=== PATIENT | male | born 1965 | race Caucasian/White ===

== ENCOUNTER → 2021-10-05 13:20 | Outpatient (BNVA) | payer MEDICAID, SELFPAY | PROVIDERS: Visit Provider Specialist | DX: M54.17 Radiculopathy, lumbosacral region (principal); G43.711 Chronic migraine without aura, intractable, with status migrainosus; R25.1 Tremor, unspecified; F32.A Depression, unspecified | CPT/HCPCS: 99204 ==

== ENCOUNTER → 2022-01-05 14:11 | Outpatient (BNVA) | payer MEDICAID, SELFPAY | PROVIDERS: Visit Provider Specialist | DX: G43.711 Chronic migraine without aura, intractable, with status migrainosus (principal); I16.0 Hypertensive urgency; M54.17 Radiculopathy, lumbosacral region; F32.A Depression, unspecified; R25.1 Tremor, unspecified | CPT/HCPCS: 99214; 99215 ==

== ENCOUNTER → 2022-06-01 08:50 | Outpatient (BNVA) | payer MEDICAID, SELFPAY | PROVIDERS: Visit Provider Specialist | DX: G43.711 Chronic migraine without aura, intractable, with status migrainosus (principal); M54.81 Occipital neuralgia | CPT/HCPCS: 64405; 64450; 99213; 99214; J1030 ==

== ENCOUNTER → 2022-06-29 10:28 | Outpatient (BNVA) | payer MEDICAID, SELFPAY | PROVIDERS: Visit Provider Specialist | DX: G43.711 Chronic migraine without aura, intractable, with status migrainosus (principal); M54.81 Occipital neuralgia | CPT/HCPCS: 64405; 64450; 99214; J1030; J3490 ==

== ENCOUNTER → 2022-09-27 09:32 | Outpatient (BNVA) | payer MEDICAID, SELFPAY | PROVIDERS: Visit Provider Specialist | DX: M54.81 Occipital neuralgia (principal); G43.711 Chronic migraine without aura, intractable, with status migrainosus; F32.A Depression, unspecified; Z79.891 Long term (current) use of opiate analgesic; R11.0 Nausea | CPT/HCPCS: 64405; 64450; 99214 ==

== ENCOUNTER → 2023-04-04 09:04 | Outpatient (BNVA) | payer MEDICARE, MEDICAID, SELFPAY | PROVIDERS: PCP Family Medicine; Visit Provider Specialist | DX: G43.711 Chronic migraine without aura, intractable, with status migrainosus; F32.A Depression, unspecified; M54.12 Radiculopathy, cervical region | CPT/HCPCS: 99214 ==

== ENCOUNTER 2023-04-14 07:11 | Outpatient (CLI) | payer MEDICAID, SELFPAY ==
--- NOTE | 2023-04-14 08:00 | MR_ITS ---
WS: [id number] MRI CERVICAL SPINE NONCONTRAST TECHNIQUE: Sagittal T1, T2 and STIR imaging. Axial T2, gradient, and fiesta imaging. CLINICAL INFORMATION: G43.711 - Chronic migraine without aura, intractable, wit... COMPARISON: None. FINDINGS: Mild cervical curve. Mild spondylitic changes. Cord signal is normal. C2-C3: Normal. C3-C4: Slight retrolisthesis C3 on C4. Mild disc osteophyte complex with endplate ridging. Slight eff acement of the RIGHT ventral thecal sac. Moderate RIGHT and mild LEFT foraminal narrowing. Moderate f acet arthropathy. C4-C5: Disc osteophyte complex with endplate ridging. Moderate facet arthropathy. Moderate to severe LEFT greater than RIGHT bony foraminal narrowing. Moderate facet arthropathy. Mild central canal sten osis. Slight indentation LEFT ventral cervical cord. C5-C6: Disc osteophyte complex with mild central canal stenosis and slight contact of the cervical co rd. Moderate to severe bilateral bony foraminal narrowing. Moderate facet arthropathy. C6-C7: Shallow RIGHT pericentral protrusion. Slight indentation RIGHT ventral cervical cord with mild central canal stenosis. Severe LEFT and mild RIGHT bony foraminal narrowing. C7-T1: Disc osteophyte complex with endplate ridging. Slight indentation LEFT ventral cervical cord. LEFT subarticular disc extrusion with slight inferior migration of disc material. 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 Severe LEFT and moderate to severe RIGHT bony foraminal narrowing. Mild central canal stenosis. Visualized brain stem structures: Normal. Prevertebral soft tissues: Normal. MR/MR cervical spin wo con* [id number] IMPRESSION: 1. LEFT pericentral subarticular disc protrusion with additional disc extrusio n extending inferiorly to the upper T1 vertebral body. This is best visualized on the sagittal imaging. This extends into the LEFT subarticular recess with se venita LEFT foraminal narrowing. Mild central canal stenosis at this level. 2. Disc osteophyte protrusions with mild central canal stenosis C5-C6 and C6-C 7 described above. Indentation RIGHT ventral cervical cord at C6-C7. 3. Mild central canal stenosis C4-C5 with slight indentation LEFT ventral cerv ical cord. 4. Multilevel moderate to severe bony foraminal narrowing worse at bilateral C 4-C5 worse in the LEFT, bilateral C5-C6, LEFT C6-C7, and LEFT C7-T1.
== END 2023-04-14 07:12 | disposition home or self-care (01) ==
PROVIDERS: PCP Family Medicine; Visit Provider Specialist
DX: G43.711 Chronic migraine without aura, intractable, with status migrainosus (principal); M54.81 Occipital neuralgia; M51.24 Other intervertebral disc displacement, thoracic region; M48.04 Spinal stenosis, thoracic region; M25.78 Osteophyte, vertebrae; M48.02 Spinal stenosis, cervical region
CPT/HCPCS: 72141

== ENCOUNTER → 2023-05-18 10:36 | Outpatient (BNVA) | payer MEDICARE, MEDICAID, SELFPAY | PROVIDERS: PCP Family Medicine; Referring Provider Specialist; Visit Provider Orthopaedic Surgery | DX: Z01.818 Encounter for other preprocedural examination (principal); C61 Malignant neoplasm of prostate; M54.12 Radiculopathy, cervical region | CPT/HCPCS: 72050; 99204 ==

== ENCOUNTER 2023-05-22 12:53 | Outpatient (CLI) | payer MEDICARE, MEDICAID, SELFPAY ==
[2023-05-22 13:27] LABS: Basophils % 0.6 %; Eosinophils # 0.2 10^3/uL (0.0-0.8); Eosinophils % 2.8 %; Hematocrit 43.8 % (37-53); Lymphocytes # 2.3 10^3/uL (0.8-4.8); Lymphocytes % 34.2 %; Mean Corpuscular HGB Conc 34.7 g/dL (30-55); Mean Corpuscular Hemoglobin 30.2 pg (27-33); Mean Corpuscular Volume 86.9 fl (82-101); Mean Platelet Volume 11.2 fL (7.4-10.4); Monocytes # 0.4 10^3/uL (0.2-0.9); Monocytes % 5.6 %; Neutrophils % 56.4 %; Nucleated Red Blood Cells % 0 %; Platelet Count 148 10^3/cmm (157-399); Red Blood Count 5.04 10^6/uL (3.85-5.65); Red Cell Distribution Width 13.5 % (12.1-15.1); White Blood Count 6.75 10^3/uL (3.29-11.43)
[2023-05-22 13:37] LABS: Urine Appearance Clear (CLEAR); Urine Color Yellow (Yellow)
[2023-05-22 13:38] LABS: Add Urine Culture? No; Add Urine Microscopic? YES; Bacteria Urine TRACE /hpf; Bilirubin Urine Neg (Negative); Blood Urine Trace (Negative); Glucose Urine UA 4+ (Normal); Ketones Urine Negative (Negative); Leukocyte Esterase Urine Negative (Negative); Nitrate Urine Negative (Negative); Protein Urine Trace (Negative); RBC Urine RARE /hpf (0-2); Specific Gravity, Urine 1.015 (1.005-1.030); Urobilinogen Urine Norm (Negative); pH Urine 6 (5-7)
[2023-05-22 13:56] LABS: Estmated Average Glucose 192; Hemoglobin A1C 8.3 % (4.0-6.0)
[2023-05-22 14:07] LABS: Alanine Aminotransferase 116 U/L (0-41); Albumin Level 4.7 g/dL (3.5-5.2); Alkaline Phosphatase 126 U/L (40-130); Anion Gap 13.7 (5-19); Aspartate Amino Transferase 104 U/L (0-40); Blood Urea Nitrogen 9 mg/dL (6-20); Calcium 9.2 mg/dL (8.5-10.5); Carbon Dioxide 31 mmol/L (22-29); Chloride 100 mmol/L (98-107); Globulin 3.1 g/dL (1.3-4.6); Glomerular Filtration Rate 86.4 mL/min (90-130); Glucose 242 mg/dL (65-115); Osmolality Calculated 299 mOsm/kg (285-295); Potassium 3.7 mmol/L (3.5-5.1); Sodium 141 mmol/L (136-145); Total Bilirubin 0.6 mg/dL (0.15-1.2); Total Protein 7.8 g/dL (6.6-8.7)
== END 2023-05-22 12:54 | disposition home or self-care (01) ==
PROVIDERS: PCP Family Medicine; Visit Provider Orthopaedic Surgery
DX: Z01.818 Encounter for other preprocedural examination (principal); E11.9 Type 2 diabetes mellitus without complications
CPT/HCPCS: 36415; 80053; 81001; 83036; 85025

== ENCOUNTER → 2023-06-05 10:20 | Outpatient (BNVA) | payer MEDICARE, MEDICAID, SELFPAY | PROVIDERS: PCP Family Medicine; Visit Provider Family Medicine | DX: Z01.818 Encounter for other preprocedural examination (principal); I16.0 Hypertensive urgency; G43.711 Chronic migraine without aura, intractable, with status migrainosus | CPT/HCPCS: 81000; 83036 ==

== ENCOUNTER → 2023-07-18 10:06 | Outpatient (BNVA) | payer MEDICARE, MEDICAID, SELFPAY | PROVIDERS: PCP Family Medicine; Visit Provider Family Medicine | DX: M50.00 Cervical disc disorder with myelopathy, unspecified cervical region (principal) | CPT/HCPCS: 83036 ==

== ENCOUNTER → 2023-07-25 12:49 | Outpatient (BNVA) | payer MEDICARE, MEDICAID, SELFPAY | PROVIDERS: PCP Family Medicine; Visit Provider Orthopaedic Surgery | DX: M50.00 Cervical disc disorder with myelopathy, unspecified cervical region; Z01.818 Encounter for other preprocedural examination | CPT/HCPCS: 36415; 80053; 81003; 85025; 99214 ==

== ENCOUNTER → 2023-08-10 09:43 | Outpatient (BNVA) | payer MEDICARE, MEDICAID, SELFPAY | PROVIDERS: PCP Family Medicine; Visit Provider Family Medicine | DX: Z01.818 Encounter for other preprocedural examination (principal) | CPT/HCPCS: 80053; 81003 ==

== ENCOUNTER 2023-08-16 13:29 | Inpatient (IN) | payer MEDICARE, MEDICAID, SELFPAY ==
[2023-08-16] VITALS (29 sets, daily range): BP systolic 102–207; BP diastolic 71–142; PULSE 62–89; RESP 7–18; TEMP 36.3–36.8; O2SAT 88–99
--- NOTE | 2023-08-16 | XR_ITS ---
WS: [id number] Cervical spine, C ARM fluoroscopy views, 08/16/2023 Clinical Data: or pic, C4-T1 ACDF Comparison: None. Findings: Dr. Espino performed an anterior cervical disc fusion. Impression: Anterior cervical disc fusion.
[2023-08-16] MEDS: sodium chloride 0.9% 1,000 ML 30 ML IV (07:20)
[2023-08-16] MEDS: methadone 10 mg Tablet PO (07:25)
[2023-08-16] MEDS: HYDROmorphone 1 mg/mL INJ 1 mL 0.5 MG IVP (07:50)
--- NOTE | 2023-08-16 07:52 | P.ANESASSM_ITS ---
Pre-Anesthetic Assessment Height/Weight: Height 1.65 m Weight 71.214 kg Temp Pulse Resp BP Pulse Ox O2 Del Method 97.3 F L 87 17 155/123 99 Room Air 08/16/23 07:11 08/16/23 07:11 08/16/23 07:11 08/16/23 07:11 08/16/23 07:11 08/16/23 07:11 Preop Diagnosis: Cervical Spondylosis w/myelopathy Operation Date: 08/16/23 08:40 Proposed Procedures p C4/5 C5/6 C6/7 Anterior Cervical Discectomy & Fusion ACDF(Not Applicable) - Ed Espino DO Familial anesthetic complications: none Was Beta Maikel taken within 24 hours: Yes Was Clonidine taken within 24 hours: Yes Last intake: Intake Last Liquid Date 08/15/23 Last Liquid Time 00:00 Last Solid Date 08/15/23 Last Solid Time 21:00 Social No alcohol and No tobacco Exam alert, oriented x 3, clear to auscultation bilaterally and regular rate & rhythm Airway Submandibular: within normal limits Cervical ROM: within normal limits Mallampati: Class II Dentition: caps Comments: Comments: Good cervical ROM, minimal pain with extension CV/HEM Hypertension GI Gastroesophageal Reflux Disease Metabolic Diabetes Mellitus and Hyperlipidemia [facility] [place] Osteoarthritis/DJD Neuropsych Anxiety, Dementia and Headache Anesthetic Plan ASA status: 3 Anesthesia: General Medications/Allergies Home Medications Medication Instructions Recorded Confirmed Last Taken Type diphenhydramine HCl 25 mg tablet 25 mg PO TID PRN Itching 10/05/21 08/16/23 08/15/23 History (Allergy (diphenhydramine)) sumatriptan succinate 100 mg See Rx Instructions PO .COMPLEX #8 01/05/22 08/16/23 Unknown Rx tablet (Imitrex) tabs tizanidine 4 mg capsule 4 mg PO BID PRN muscle spams 01/05/22 08/16/23 08/15/23 History isosorbide mononitrate 30 mg 30 mg PO DAILY 06/01/22 08/14/23 07/15/23 History tablet,extended release 24 hr pantoprazole 20 mg tablet,delayed 20 mg PO DAILY 06/01/22 08/16/23 08/15/23 History release topiramate 100 mg tablet (Topamax) 100 mg PO ONCE 90 days #90 tabs 06/01/22 08/14/23 07/15/23 Rx clonidine HCl 0.1 mg tablet 0.1 mg PO BID 09/27/22 08/16/23 Unknown History Bone growth stimulator #1 ea 05/22/23 07/25/23 Unknown Rx bisoprolol fumarate 5 mg tablet 2.5 mg PO DAILY 06/05/23 08/14/23 Unknown History clopidogrel 75 mg tablet 75 mg PO DAILY 06/05/23 08/14/23 07/15/23 History dapagliflozin propanediol 5 mg 5 mg PO DAILY 06/05/23 08/14/23 08/11/23 History tablet (Farxiga) fesoterodine 8 mg tablet,extended 8 mg PO DAILY 06/05/23 08/14/23 07/15/23 History release 24 hr (Toviaz) galcanezumab-gnlm 120 mg/mL See Rx Instructions .Route 06/05/23 08/16/23 Unknown Rx subcutaneous pen injector .COMPLEX #2 mL (Emgality Pen) labetalol 100 mg tablet 100 mg PO BID 06/05/23 08/16/23 08/15/23 History losartan 50 mg tablet 100 mg PO DAILY 06/05/23 08/14/23 07/15/23 History metoclopramide HCl 5 mg tablet 10 mg PO BID 06/05/23 08/14/23 07/15/23 History ondansetron 4 mg disintegrating 4 mg PO Q8H PRN nausea and vomiting 06/05/23 08/16/23 Unknown History tablet promethazine 25 mg tablet 25 mg PO TID PRN nausea 06/05/23 08/16/23 Unknown History spironolactone 50 mg tablet 50 mg PO BID 06/05/23 08/14/23 07/15/23 History venlafaxine 75 mg capsule,extended 225 mg PO DAILY 06/05/23 08/16/23 08/15/23 History release 24 hr Bone Growth stimulator #1 ea 08/07/23 Unknown Rx cilostazol 50 mg tablet 50 mg PO BID 08/10/23 08/14/23 07/15/23 History metformin 500 mg tablet 500 mg PO DAILY 08/10/23 08/14/23 08/11/23 History simvastatin 20 mg tablet 20 mg PO DAILY 08/10/23 08/14/23 08/14/23 History diltiazem HCl 120 mg 120 mg PO BID 08/14/23 08/16/23 Unknown History capsule,extended release 24 hr, controlled (DILT-XR) Allergies Allergy/AdvReac Type Severity Reaction Status Date / Time aspirin Allergy Severe ALGY-Anaphy Verified 08/10/23 09:28 laxis Current Medications Generic Name Dose Route Start Last Admin Trade Name Freq PRN Reason Stop Dose Admin Sodium Chloride 1,000 mls @ 30 mls/hr 08/16/23 07:00 08/16/23 07:20 Sodium Chloride 0.9% IV 08/17/23 06:59 30 mls/hr .Q24H KAILEY Administration PFSH Anesthesia Social History Smoking and tobacco/nicotine status: former use of tobacco/nicotine Alcohol intake: current Alcohol intake frequency: holidays/special occasions only Data Anesthesia Cardiac Studies: No Data to Display
--- NOTE | 2023-08-16 08:40 | W.PM.OPSUD ---
Surgery/Procedure H&P Update DATE OF PROCEDURE: August 16, 2023 DATE H&P PERFORMED: 08/10/23 H&P UPDATE INFORMATION: I have reviewed H&P completed within last 30 days, I have examined patient prior to procedure and No changes to prior documentation PREOP DIAGNOSIS: Cervical Spondylosis w/myelopathy PLANNED PROCEDURE: Operation Date: 08/16/23 08:40 Proposed Procedures p C4/5 C5/6 C6/7 Anterior Cervical Discectomy & Fusion ACDF(Not Applicable) - Ed Espino DO
[2023-08-16] MEDS: ceFAZolin 2,000 MG in sodium chloride 0.9% (plus) 50 ML 100 MG IV ×2 (08:48→16:59)
[2023-08-16] MEDS: lidocaine-epi 2% 20 mL INJ INJECTION (09:52)
[2023-08-16] MEDS: thrombin 5,000 unit SDV 5000 UNIT XX (09:53)
[2023-08-16 10:41] LABS: Glucose Point of Care 141 mg/dL (70-110)
--- NOTE | 2023-08-16 11:58 | P.OP_ITS ---
Operative Report Date of procedure: August 16, 2023 Pre-op diagnosis: Cervical spondylosis with radiculopathy Post-op diagnosis: same Procedure done: 1. Anterior diskectomy C4/5 2. Anterior diskectomy C5/6 3. Anterior discectomy C6/7 4. Insetion of cage C4/5 5. Insertion of cage C5/6 6. Insertion of Cage C6/7 7. Instrumentation with anterior plate from C4-C7 8. Use of allograft Surgeon: Ed Espino DO Estimated blood loss (mL): 50 Procedure: 1. Anterior diskectomy C4/5 2. Anterior diskectomy C5/6 3. Anterior discectomy C6/7 4. Insetion of cage C4/5 5. Insertion of cage C5/6 6. Insertion of Cage C6/7 7. Instrumentation with anterior plate from C4-C7 8. Use of allograft The patient was taken to the operating room, where he underwent general endotracheal anesthesia without complications. He was then positioned supine on the operating table, and all areas of impingement were well padded. The arms were carefully padded and tucked at his sides. A roll was placed between the shoulder blades.. An x-ray was done to determine the appropriate level for the skin incision. The entire neck was then sterilely prepped and draped in the usual fashion. Neuromonitoring was attached prior to prepping. A transverse skin incision was made and carried down to the platysma muscle. This was then split in line with its fibers. Blunt dissection was carried down medial to the carotid sheath and lateral to the trachea and esophagus until the anterior cervical spine was visualized. A needle was placed into a disc and an x-ray was done to determine its location. The longus colli muscles were then elevated bilaterally with the electrocautery unit. Self-retaining retractors were placed deep to the longus colli muscle. Attention was brought to the C4/5 level that was confirmed on x-ray. A caspar pin was placed into the C4 vertebrae and the C5 vertebrae. The disk space was then distracted. The microscope was then brought in. A radical anterior discectomies were performed at C4/5. This included complete removal of the anterior annulus, nucleus, and posterior annulus. The posterior longitudinal ligament was removed as were the posterior osteophytes. Foraminotomies were then accomplished bilaterally. This was done using a high speed alta, kerrison rongeurs and curretes Once all of this was accomplished, the curved currette was used to check for any residual compression. The central canal was wide open as were the foramen. A high-speed bur was used to remove the cartilaginous endplates above and below the interspace. Bleeding cancellous bone was exposed. The disc space were measured and appropriate size cage were placed sterilely onto the field. Allograft graft was packed into the cages. The cage was then placed and there was good juxtaposition against the bleeding decorticated surfaces and good distraction of each interspace. Attention was brought to the next interspace. The Byron pins were removed. Bone wax was used to prevent any bleeding from occurring at the pin sites. Attention was brought to the C5/6 level that was confirmed on x-ray. A caspar pin was placed into the C5 vertebrae and the C6 vertebrae. The disk space was then distracted. The microscope was then brought in. A radical anterior discectomies were performed at C5/6. This included complete removal of the anterior annulus, nucleus, and posterior annulus. The posterior longitudinal ligament was removed as were the posterior osteophytes. Foraminotomies were then accomplished bilaterally. This was done using a high speed alta, kerrison rongeurs and curretes Once all of this was accomplished, the curved currette was used to check for any residual compression. The central canal was wide open as were the foramen. A high-speed bur was used to remove the cartilaginous endplates above and below the interspace. Bleeding cancellous bone was exposed. The disc space were measured and appropriate size cage were placed sterilely onto the field. Allograft graft was packed into the cages. The cage was then placed and there was good juxtaposition against the bleeding decorticated surfaces and good distraction of each interspace. Attention was brought to the next interspace. The Byron pins were removed. Bone wax was used to prevent any bleeding from occurring at the pin sites. Attention was brought to the C6/7 level that was confirmed on x-ray. A caspar pin was placed into the C6 vertebrae and the C7 vertebrae. The disk space was then distracted. The microscope was then brought in. A radical anterior discectomies were performed at C6/7. This included complete removal of the anterior annulus, nucleus, and posterior annulus. The posterior longitudinal li gament was removed as were the posterior osteophytes. Foraminotomies were then accomplished bilaterally. This was done using a high speed alta, kerrison rongeurs and curretes Once all of this was accomplished, the curved currette was used to check for any residual compression. The central canal was wide open as were the foramen. A high-speed bur was used to remove the cartilaginous endplates above and below the interspace. Bleeding cancellous bone was exposed. The disc space were measured and appropriate size cage were placed sterilely onto the field. Allograft graft was packed into the cages. The cage was then placed and there was good juxtaposition against the bleeding decorticated surfaces and good distraction of each interspace. Attention was brought to the next interspace. The Byron pins were removed. Bone wax was used to prevent any bleeding from occurring at the pin sites. The appropriate size anterior cervical locking plate was chosen and bent into gentle lordosis. Two screws were then placed into each of the vertebral bodies at C4, C5, C6 and C7. There was excellent purchase. A final x-ray was done confirming good position of the hardware and Cages. The locking screws were then applied, also with excellent purchase. Following a final copious irrigation, there was good hemostasis and no dural leaks. The carotid pulse was strong. The wounds were then closed in layers using 2-0 Vicryl suture for the platysma muscle, 2-0 Vicryl suture for the subcutaneous tissue, and 4-0 monocryl suture in a subcuticular skin closure. Glue was placed followed by application of a sterile dressing. The drain was hooked to bulb suction. A soft collar was applied. The patient was then carefully returned to the supine position on his hospital bed where he was reversed and extubated and taken to the recovery room having tolerated the procedure well.
[2023-08-16 13:34] LABS: ABG PCO2 56.7 mmHg (35-45); ABG PH Result 7.25 (7.35-7.45); Arterial Blood Gas Hematocrit 41.9 % (42-52); Base Excess ABG -3.5 mmol/L (-2.0-2.0); Blood Gas Allen Test Pos; Blood Gas Operator Identificat CONGI; Blood Gas Sample Site Radial, right; Blood Gas Sample Type Arterial; HCO3 ABG 24.6 mmol/L (22-26); Oxygen Device ROOM AIR; PO2 ABG 56.3 mmHg (80.0-100.0)
[2023-08-16] MEDS: lactated ringers 1,000 ML 90 ML IV (14:54)
--- NOTE | 2023-08-16 15:58 | ANE.PACU2 ---
Inpatient post-anesthesia follow up: Airway intact: Yes Vital signs: Temperature 97.5 F Pulse Rate 75 Respiratory Rate 16 Blood Pressure 157/87 Pulse Oximetry 92 Oxygen Delivery Me thod Room Air Oxygen Flow Rate 2 Fraction of Inspir ed Oxygen Hydration adequate: Yes Nausea and vomiting: No Pain level: 4 Mental status: Baseline
[2023-08-16] MEDS: HYDROcodone-acetaminophen 5-325 mg Tablet PO (16:09)
[2023-08-16 16:46] LABS: Glucose Point of Care 209 mg/dL (70-110)
[2023-08-16] MEDS: ketorolac 30 mg/mL INJ IVP (16:58)
[2023-08-16] MEDS: cilostazol 100 mg Tablet 50 MG PO (16:58)
[2023-08-16] MEDS: spironolactone 25 mg Tablet 50 MG PO (16:58)
[2023-08-16] MEDS: metoclopramide 10 mg Tablet PO (16:58)
[2023-08-16] MEDS: docusate sodium 100 mg Capsule PO (16:59)
[2023-08-16] MEDS: labetalol 200 mg Tablet 100 MG PO (16:59)
[2023-08-16] MEDS: cloNIDine 0.1 mg Tablet PO (16:59)
[2023-08-16 21:27] LABS: Glucose Point of Care 435 mg/dL (70-110)
[2023-08-16] MEDS: insulin lispro 100 unit/1 mL SUBCUT (22:11)
[2023-08-17] MEDS: HYDROcodone-acetaminophen 5-325 mg Tablet PO ×2 (00:13→08:30)
[2023-08-17] MEDS: ceFAZolin 2,000 MG in sodium chloride 0.9% (plus) 50 ML 100 MG IV ×2 (00:14→08:23)
[2023-08-17] MEDS: lactated ringers 1,000 ML 90 ML IV (02:26)
[2023-08-17 03:48] VITALS: BP 151/85; PULSE 66; RESP 16; TEMP 36.6; O2SAT 94
[2023-08-17 06:38] LABS: Glucose Point of Care 164 mg/dL (70-110)
[2023-08-17 07:53] VITALS: BP 171/90; PULSE 78; RESP 16; TEMP 36.4; O2SAT 96
--- NOTE | 2023-08-17 08:04 | P.DS_ITS ---
Discharge Providers Date of Admission: 08/16/23 13:29 Date of Discharge: August 17, 2023 Attending Provider at Admission: Ed Espino DO Attending Provider at Discharge: Ed Espino DO Primary Care Provider: Layla Hurd MD Reason for Visit Reason for Visit: M54.9, M50.00 Physical Exam Narrative: Patient sitting in bed pain controlled minimal pain. Eating swallowing well. Urinary Catheter Management: [place]: Cath Placed During This Visit: yes, but has since been removed by the nurse Urinary Catheter Date of Insertion: 08/16/23 Urinary Catheter Time of Insertion: 09:00 Date Urinary Catheter Removed: 08/16/23 Time Urinary Catheter Discontinued: 12:02 Discharge Data Studies Completed and Pending Completed Studies During Hospitalization Category Date Time Status XR cervical spine 3V* 17302 Routine Exams 08/16/23 Completed Pending at discharge Category Date Time Status C-arm Fluoroscopy 80767 Routine Exams 08/16/23 06:55 Taken Laboratory Results Specimen Type Arterial 08/16/23 13:20 Sample Site Radial, right 08/16/23 13:20 ABG pH 7.25 (7.35-7.45) L 08/16/23 13:20 ABG pCO2 56.7 mmHg (35-45) H 08/16/23 13:20 ABG pO2 56.3 mmHg (80.0-100.0) L 08/16/23 13:20 ABG HCO3 24.6 mmol/L (22-26) 08/16/23 13:20 ABG Base Excess -3.5 mmol/L (-2.0-2.0) L 08/16/23 13:20 Lev Test Pos 08/16/23 13:20 Hematocrit 41.9 % (42-52) L 08/16/23 13:20 O2 Delivery Device Room air 08/16/23 13:20 Soil Science Professor ID Congi 08/16/23 13:20 POC Glucose 164 mg/dL (70-110) H 08/17/23 06:26 Vitals Last Vital Signs Temp 97.6 F 08/17/23 07:53 Pulse 78 08/17/23 07:53 Resp 16 08/17/23 07:53 BP 171/90 08/17/23 07:53 Pulse Ox 96 08/17/23 07:53 O2 Del Method Room Air 08/17/23 07:53 O2 Flow Rate 2 12/06/23 13:31 Discharge Plan Discharge Patient Disposition: Home Condition: Stable Prescriptions: New hydrocodone-acetaminophen 5-325 mg tablet 1 - 2 tab PO .Q4-6H Qty: 40 0RF Continued diphenhydramine HCl [Allergy (diphenhydramine)] 25 mg tablet 25 mg PO TID PRN (Reason: Itching) tizanidine 4 mg capsule 4 mg PO BID PRN (Reason: muscle spams) sumatriptan succinate [Imitrex] 100 mg tablet See Rx Instructions PO .COMPLEX Qty: 8 6RF Rx Instructions: take 1 tab at onset of headache; if no relief, may repeat 1 tab after at least 2 hrs; max = 2 tabs/24 hrs PO isosorbide mononitrate 30 mg tablet extended release 24 hr 30 mg PO DAILY pantoprazole 20 mg tablet,delayed release (DR/EC) 20 mg PO DAILY topiramate [Topamax] 100 mg tablet 100 mg PO ONCE 90 Days Qty: 90 3RF venlafaxine 75 mg capsule,extended release 24hr 225 mg PO DAILY losartan 50 mg tablet 100 mg PO DAILY clonidine HCl 0.1 mg tablet 0.1 mg PO BID metoclopramide HCl 5 mg tablet 10 mg PO BID labetalol 100 mg tablet 100 mg PO BID clopidogrel 75 mg tablet 75 mg PO DAILY promethazine 25 mg tablet 25 mg PO TID PRN (Reason: nausea) spironolactone 50 mg tablet 50 mg PO BID fesoterodine [Toviaz] 8 mg tablet extended release 24 hr 8 mg PO DAILY Farxiga 5 mg tablet 5 mg PO DAILY ondansetron 4 mg tablet,disintegrating 4 mg PO Q8H PRN (Reason: nausea and vomiting) bisoprolol fumarate 5 mg tablet 2.5 mg PO DAILY Emgality Pen 120 mg/mL pen injector See Rx Instructions .ROUTE .COMPLEX Qty: 2 0RF Dose Instruction: INJECT 240MG (2ML) SUB Q ONCE LOADING DOSE Rx Instructions: INJECT 240MG (2ML) SUB Q ONCE LOADING DOSE metformin 500 mg tablet 500 mg PO DAILY cilostazol 50 mg tablet 50 mg PO BID simvastatin 20 mg tablet 20 mg PO DAILY (DME) Bone growth stimulator See Rx Instructions .Route .MEDSUPPLY Qty: 1 0RF Rx Instructions: As directed (DME) Bone Growth stimulator See Rx Instructions .Route .MEDSUPPLY Qty: 1 0RF Rx Instructions: As directed diltiazem HCl [DILT-XR] 120 mg capsule,ext.rel 24h degradable 120 mg PO BID Discharge Orders: Discharge Order (Routine); Ordered 08/17/23 Ordered By: Ed Espino Discharge Diet: Advance as tolerated Discharge Activity: Limit activity as instructed Patient Instructions: Opioid Safety Activity Restrictions/Additional Instructions: Thank you for choosing [facility] for your care! The following is a list of instructions, from your provider, to follow upon your discharge to ensure you have the optimal recovery from your recent injury or surgery. Anterior Cervical Discectomy and Fusion: What to Expect at Home Your Recovery Follow-up care is a [place] part of your treatment and safety. Be sure to make and go to all appointments, and call your doctor if you are having problems. If you do not already have a follow-up appointment made, call office in the next 1-3 days to make follow up appointment for 2 weeks at [phone]. It is also a good idea to know your test results and keep a list of the medicines you take. You can expect your neck to feel stiff or sore after surgery. This should improve in the weeks after surgery. But it may take 4 to 6 months for you to get better completely. You may have trouble sitting or standing in one position for very long and may need pain medicine in the weeks after your surgery. It may take 4 to 6 weeks to get back to your usual activities, but it may depend on what kind of surgery you had. Your throat will feel sore and it may be difficult to swallow for the first 3 days after your surgery. As long as you can get liquids down without difficulty, this should slowly improve, otherwise call our office or seek medical attention if it becomes increasingly difficult to get anything down including liquids. Avoid hot liquids for first 3-5 days. Soothing foods/liquids such as jello, pudding, and luke warm soups are recommended until swallowing improves. Staying elevated will also help, it's advised you keep propped up at while sleeping to help reduce the swelling. You may use an ice pack directly on your incision or around it on the front of your neck, using a cloth to protect your skin; and a heating pad to the back of your neck as needed. Do not use over the counter anti-inflammatory medications (Ibuprofen, Motrin, Aleve, Advil, etc) Taking these meds after having a fusion can delay fusion rates, we recommend you avoid them for the first 3 [address] your surgery[address] Dr[address] Espino may advise you to work with a physical therapist to strengthen the muscles around your neck and back - this will be discussed at your follow - up appointments. The pain or numbness you were having in your arms before surgery should get better or go away completely. This care sheet gives you a general idea about how long it will take for you to recover. But each person recovers at a different pace. Follow the steps below to get better as quickly as possible. How can you care for yourself at home? Activity ? Rest when you feel tired. Getting enough sleep will help you recover. ? Try to walk each day. Start by walking a little more than you did the day before. Bit by bit, increase the amount you walk. Walking boosts blood flow and helps prevent pneumonia and constipation. Walking may also decrease your muscle soreness after surgery. ? No lifting anything that is more that 5 pounds. This may include heavy grocery bags and milk containers, a heavy briefcase or backpack, cat litte r or dog food bags, a child, or a vacuum hide cleaner. ? Avoid strenuous activities, such as bicycle riding, jogging, weightlifting, or aerobic exercise, until your doctor says it is okay. ? Do not drive until your follow-up visit after your surgery, or until your doctor says it isokay. ? Avoid taking long car trips for 2 to 4 weeks after surgery. Your neck may become tired and painful from sitting too long in one position. ? You will probably need to take 4 to 6 weeks off from work. It depends on the type of work you do and how you feel. ? You may have sex as soon as you feel able, but avoid positions that put stress on your neck or cause pain. Diet ? You can eat your normal diet. If your stomach is upset, try bland, low-fat foods like plain rice, broiled chicken, toast, and yogurt ? Drink plenty of fluids. If you have kidney, heart, or liver disease and have to limit fluids, talk with your doctor before you increase the amount of fluids you drink. ? You may notice that your bowel movements are not regular right after your surgery. This is common. Try to avoid constipation and straining with bowel movements. You may want to take a fiber supplement every day. If you have not had a bowel movement after a couple of days, ask your doctor about taking a mild laxative. Medicines ? Take pain medicines exactly as directed. 1. If Dr. Espino gave you a prescription medicine for pain, take lt as prescribed. 2. Do not take two or more pain medicines at the same time unless the doctor told you to. Many pain medicines have acetaminophen, which is Tylenol. Too much acetaminophen {Tylenol) can be harmful. 3. If you think your pain pill is making you sick to your stomach: 4. Take your pills after meals (unless your doctor has told you not to). 5. Ask your Dr. for a different pain pill. Incisioncare ? Remove your dressing 48hours after your surgery. Ok to shower and get the incision wet. Do not overtly wash your incision. When done, pad dry, leave open to air thereafter. Avoid creams and ointments directly on your incision. ? Your sutures in the incision will dissolve and fall out on their own. ? Keep the area clean and dry. You may cover it with a gauze bandage if it weeps or rubs against clothing; if you choose to do this, change the dressing everyday. Other instructions ? Use a heating pad, hot water bottle, or gentle massage on your back to reduce stiffness. Avoid putting heat on your incision When should you call for help? ? Call 911 anytime you think you may need emergency care. For example, call if: ? You pass out (lose consciousness). ? You have sudden chest pain and shortness of breath, or you cough upblood. ? You cannot swallow. ? You have severe pain in your neck or back. ? Call your Dr. or seek immediate medical care if: ? You have pain that does not get better after you take pain pills. ? You have loose stitches, or your incision comes open. ? You have blood or fluid draining from the incision. ? You have signs of infection, such as: 1. Increased pain, swelling, warmth, or redness. 2. Red streaks leading from the site. 3. Pus draining from the site. 4. Swollen lymph nodes in your neck or armpits. 5. A fever. ? You have severe pain in your arms. ? You have new or increased weakness or numbness in your arms. ? Watch closely for any changes in your health, and be sure to contact your doctor if: ? You do not have a bowel movement after taking a laxative. Discharge Attestations Time Spent in Discharge Care*: less than 30 min Quality Metrics Clinical Quality Measures [ No reported AMI, CVA or VTE this stay] Coding Level of Care Code Acute Code for Chg Gia
[2023-08-17] MEDS: isosorbide mononitrate ER 30 mg Tablet PO (08:20)
[2023-08-17] MEDS: spironolactone 25 mg Tablet 50 MG PO (08:20)
[2023-08-17 08:21] VITALS: BP 171/90
[2023-08-17] MEDS: venlafaxine ER (24HR) 75 mg Capsule 225 MG PO (08:21)
[2023-08-17] MEDS: losartan 50 mg Tablet 100 MG PO (08:21)
[2023-08-17] MEDS: pantoprazole DR 40 mg Tablet PO (08:21)
[2023-08-17] MEDS: topiramate 100 mg Tablet PO (08:21)
[2023-08-17] MEDS: docusate sodium 100 mg Capsule PO (08:21)
[2023-08-17] MEDS: labetalol 200 mg Tablet 100 MG PO (08:21)
[2023-08-17 08:22] VITALS: BP 171/90
[2023-08-17] MEDS: cloNIDine 0.1 mg Tablet PO (08:22)
[2023-08-17] MEDS: metformin 500 mg Tablet PO (08:22)
[2023-08-17] MEDS: cilostazol 100 mg Tablet 50 MG PO (08:22)
[2023-08-17] MEDS: metoclopramide 10 mg Tablet PO (08:22)
[2023-08-17] MEDS: insulin lispro 100 unit/1 mL SUBCUT ×2 (08:22→11:58)
[2023-08-17] MEDS: dilTIAZem ER (24HR) 120 mg Capsule PO (08:22)
--- NOTE | 2023-08-17 10:47 | PC.NURSE ---
Removed hemovac per order. Pt tolerated well.
--- NOTE | 2023-08-17 11:11 | PC.CHAP ---
Pastoral Care Encounter/Spiritual Assessment Type of Contact [] Declined aquatic habitat biologist visit [] Patient/Family/Request visit [] Outpatient visit [] Follow-up visit [] Physician referral [] Code/Alert [x] Routine visit [] Staff referral [] Actively dying [] Patient sleeping [] Family support [] [] Out of room [] Palliative care [] [x] Receiving care in room [] Pre-surgical visit [] Trauma [] Long length of stay [] ICU visit [] Other: Relational/Emotional Strength [x] Patient feels connected with others/family/visitors/staff [] Distress [] Loneliness/isolation [] Abandonment Spirituality of Patient [x] Person of Bridget [] Attends Rastafari of their Bridget [x] Believes in Prayer [] Reads Bible or Rastafarian materials [] There are Spiritual issues to be addressed Repair Department Supervisor Interventions [x] Prayer [x] Active listening [x] Non-anxious presence [x] Spiritual/emotional support [] Crisis/trauma care [x] Spiritual counseling [] Bereavement support [] Provided bereavement packet [] Provided Bible/devotional materials [] Provided toy/stuffed animal, coloring book to patient or family member [] Provided Communion [] Anointing/[place] [] Salvation [x] Completed spiritual assessment [] Other: Impact on Illness or Injury [] Angry [] Fearful [] Anxious [] Often cries [] Exhaustion [] Unable to work [] Unable to attend mandaeism [] Unable to walk/stand [] Unable to read [] Unable to drive [] Unable to eat/drink [] Unable to sleep [] Unable to be with family [] Patient intubated [] Other: Summary proceduer vetabres neck well need rehab at home in some pain has a good attitude well be going ho me Time spent with patient 10 mins
[2023-08-17 11:16] VITALS: BP 153/82; PULSE 71; RESP 18; TEMP 36.3; O2SAT 96
[2023-08-17 11:29] LABS: Glucose Point of Care 219 mg/dL (70-110)
[2023-08-17 14:09] VITALS: BP 153/82; PULSE 71; RESP 18; TEMP 36.3; O2SAT 96
--- OUTSIDE RECORDS SUMMARY | 2023-08-17 17:39 | XMS_ITS | Patient Health Record ---
Author Name Unknown Organization [facility] Address [address] [place] [address] [place] [address] Care Team Providers Care Verification Engineer Name Role Phone Layla Hurd Primary Care Provider [phone] Kemar Whitmore Unavailable [phone] Remberto Carrera Unavailable [phone] Ira eDl Valle Unavailable [phone] Twan Peres Unavailable [phone] Larry Peres Unavailable [phone] Jennifer Kaiser Unavailable [phone] Cassandra Castillo Unavailable [phone] Silvana Fonseca Unavailable ALLERGIES Allergen (clinical drug ingredient) Drug/Non Drug Allergy documented on EMR Reaction Allergy Type Onset Date Status aspirin Aspirin anaphylaxis Drug Allergy Activ e RESULTS Component Value Reference Range Notes US Ankle Brachial Pressure I ndex-61847 Reviewed date:05/01/2023 08:00:06 AM Interpretation: Performing Lab: Notes/Report: Comprehensive Metabolic Pane l 59874 Reviewed date:03/20/2023 02:42:28 PM Interpretation: Performing Lab: Notes/Report: Diagnosis Description: Other specified diseases of liver Glucose Serum 200 71-110 MG/DL Testing perfor med at [facility], [address] [place] [address] [place] [address]. CLIA ID#: [id number] BUN 12 7-21 MG/DL Creat .78 .57-1.17 MG/DL J-wldydt-z-benzoquinone imine (NAPQI) is a metabolite of acetaminophen, NAPQI concentrations of apparoximately 10 mg/L correlation to toxic levels of acetaminophen demonstrates a greater than or equil to 10% change in results. NAPQI concentrations greater than this may lead to falsely depressed results for patient samples. Use of this assay is not recommended for patients undergoing treatment with phenindione, due to the potential for falsely depressed results. GFR 102.6 Calculation per formed from GFR calculator provided by the [employer]. Glomerular Filtration rate(GRF) is the best overall index of kidney function. Normal GFR varies according to age,sex, body size, and declines with age. The National [employer] recommends using the CKD-EPI Creatinine Equation(2009) to estimate GFR. BUN/Creat Ratio 15.4 12.0-20.0 % Total Protein 6.8 5.8-8.0 G/DL Albumin 4.3 3.2-4.8 G/DL Globulin 2.4 2.3-3.5 G/DL Alb/Glob 1.8 0.8-2.2 Calcium 9.1 8.7-10.4 MG/DL Sodium 141 136-145 MMOL/L Potassium 3.6 3.5-5.1 MMOL/L Chloride 104 98-107 MMOL/L CO2 26.7 20.0-31.0 MMOL/L Anion Gap 14 5-15 Alk Phos 107 46-116 Bili Total .4 .3-1.2 MG/DL Use of this ass ay is not recommended for patients undergoing treatment with eltrombopag due to the potential for falsely elevated results. AST/SGOT 96 15-37 UNIT/L ALT/SGPT 93 12-78 UNIT/L Osmo Serum,Calculated 297 280-300 MOSM/KG Hemoglobin A1c 51509 Reviewed date:03/20/2023 02:42:28 PM Interpretation: Performing Lab: Notes/Report: Diagnosis Description: Type 2 diabetes mellitus with hyperglycemia Hgb A1c 7.9 3.8-6.4 % Interpretation Of Hgb A1c: 4.5-6.2 % nondiabetics. >7.0 % diabetics. EAG 180 Estimated [place] Glucose(EAG). Lipid Panel Reflex [facility] 8006 1, [address]94 Reviewed date:03/20/2023 02:42:28 PM Interpretation: Performing Lab: Notes/Report: Diagnosis Description: Type 2 diabetes mellitus with hyperglycemia Trig 174 Classification Guidelines:Triglycerides Adults: >20yrs Desirable <150 Borderline High 150-199 High 200-499 Very high >=500 Children: Male 0-4 yr 22-99 5-9 yr 30-101 10-14 yr 32-125 15-19 yr 37-148 Children: Female 0-4 yr 34-112 5-9 yr 32-105 10-14 yr 37-131 15-19 yr 39-132 Chol 197 <=200 MG/DL HDL 36 30-72 MG/DL Reference Ranges:HDL Male: 5-9y 38-75 10-14y 37-74 15-19y 30-63 >=20y 40-59 Female: 5-9y 36-73 10-14y 37-70 15-19y 35-74 >=20y 40-59 CH/HDL 5.5 0.0-4.9 RATIO LDL 127 0-130 MG/DL LDL result is i naccurate , if Trig is >400 mg/dl. See DLDL result. Vitamin D Total (B) 31961 Reviewed date:03/20/2023 02:42:29 PM Interpretation: Performing Lab: Notes/Report: Diagnosis Description: Vitamin D deficiency, unspecified Vitamin D Total 23.5 30.0-100.0 ng/mL Deficiency: < 20 ng/mL Insufficiency: 20? < 30 ng/mL Sufficiency: 30?100 ng/mL Performed on the Brand [facility] IM Analyzer CBC w\o Diff 01539 Reviewed date:03/20/2023 02:42:29 PM Interpretation: Performing Lab: Notes/Report: Diagnosis Description: Thrombocytopenia, unspecified WBC 4.6 4.5-11.0 X10'3 RBC 4.58 4.50-5.90 X10'6 Hgb 13.6 13.5-17.5 G/DL Hct 40.4 41.0-53.0 % MCV 88.2 80.0-100.0 FL MCH 29.7 27.0-31.0 PG MCHC 33.7 31.0-37.0 G/DL Platelet 135 150-400 X10'3 RDW-SD 44.0 35.0-49.0 FL RDW-CV 13.6 12.2-15.6 % MPV 11.8 9.2-12.0 FL Microalbumin (U) Random 8204 3 Reviewed date:03/20/2023 02:42:29 PM Interpretation: Performing Lab: Notes/Report: Diagnosis Description: Type 2 diabetes mellitus with hyperglycemia Ur Microalbumin 31.0 .0-30.0 MG/L Ur Creat 105.7 40.0-278.0 MG/DL Mal/Crea/Ratio 29.3 .0-30.0 mg Alb/g Cr Hemoglobin A1C Reviewed date:06/19/2023 05:22:29 PM Interpretation: Performing Lab: Notes/Report: Hemoglobin A1C 8.5 4.2 - 6.3 % Mean Blood Sugar (Estimated) Echo Complete EC-[id number] Reviewed date:01/09/2023 03:44:55 PM Interpretation: Performing Lab: Notes/Report: Cardiopulmonary Services Name: KOREY MCKEON Study Date: 01/09/2023 : 1965 Patient Location: [facility] Age: 57 yrs Gender: Male HR: 79 Reason For Study: cp Image Quality:Fair Interpretation Summary Left ventricular systolic function is normal. Left Ventricular Function is estimated to be 60-65%. There is mild concentric left ventricular hypertrophy. There is mild mitral regurgitation. Right ventricular systolic pressure is elevated at 30-40mmHg. Recommendations Continue present medication. Will continue to follow regularly. Left Ventricle The left ventricle is normal in size. There is mild concentric left ventricular hypertrophy. Left ventricular systolic function is normal. Left Ventricular Function is estimated to be 60-65%. The left ventricular wall motion is normal. Right Ventricle The right ventricle is normal in size and function. Atria The left atrial size is normal. Right atrial size is normal. The interatrial septum is intact with no evidence for an atrial septal defect. Great Vessels The aortic root is normal size. The pulmonary is not well visualized. Pericardium/Pleural There is no pericardial effusion. There is no pleural effusion. Mitral Valve The mitral valve is normal. There is mild mitral regurgitation. Aortic Valve The aortic valve is normal in structure and function. Tricuspid Valve There is trace tricuspid regurgitation. Right ventricular systolic pressure is elevated at 30-40mmHg. Pulmonic Valve The pulmonic valve is normal in structure and function. MMode/2D Measurements & Calculations RVDd: 3.3 cm LVIDd: 4.3 cm FS: 32.2 % IVSd: 1.3 cm LVIDs: 2.9 cm EDV(Teich): 81.0 ml LVPWd: 1.2 cm ESV(Teich): 31.8 ml EF(Teich): 60.7 % Ao root diam: 3.3 cm asc Aorta Diam: 3.0 cm LVOT diam: 2.0 cm Ao root area: 8.5 cm2 LVOT area: 3.1 cm2 ACS: 2.2 cm Time Measurements MM HR: 222.0 BPM Doppler Measurements & Calculations MV E max lynne: 54.1 cm/sec Ao V2 max: 147.8 cm/sec MV A max lynne: 81.4 cm/sec MV dec slope: 233.1 cm/sec2 Ao max P.7 mmHg MV E/A: 0.66 MV dec time: 0.23 sec Ao V2 mean: 115.3 cm/sec Ao mean P.7 mmHg Ao V2 VTI: 26.8 cm DANN(I,D): 2.4 cm2 DANN(V,D): 2.3 cm2 LV V1 max P.8 mmHg SV(LVOT): 63.7 ml PA V2 max: 93.4 cm/sec LV V1 mean P.7 mmHg PA max P.5 mmHg LV V1 max: 109.1 cm/sec PA V2 mean: 73.6 cm/sec LV V1 mean: 76.7 cm/sec PA mean P.3 mmHg LV V1 VTI: 20.7 cm TR max lynne: 204.8 cm/sec RAP systole: 5.0 mmHg TR max P.6 mmHg RVSP(TR): 22.6 mmHg Ordering Physician: Kaiser Rodriguez Referring Physician: Kaiser Rodriguez Performed By: Kamaljit Pelaez NM Gastric Emptying Study-78 264 Reviewed date:01/08/2023 10:30:18 AM Interpretation: Performing Lab: Notes/Report: [id number] US Doppler Aorta, IVC, Iliac -84823 Reviewed date:06/28/2023 12:39:13 PM Interpretation: Performing Lab: Notes/Report: US Doppler Scan Arterial LE Bilat-29347 Reviewed date:06/28/2023 12:39:07 PM Interpretation: Performing Lab: Notes/Report: Hemoglobin A1C Reviewed date:11/16/2022 01:33:35 PM Interpretation: Performing Lab: Notes/Report: Hemoglobin A1C 7.8 4.2 - 6.3 % Mean Blood Sugar (Estimated) CT Head w/ + w/o Contrast-70 470 Reviewed date:10/03/2022 08:30:52 AM Interpretation: Performing Lab: Notes/Report: [id number]=iSite CT Head w/ + w/o Contrast-70 470 Reviewed date:10/03/2022 11:02:16 AM Interpretation:Normal Performing Lab: Notes/Report: See Below For Report CT Head w/ + w/o Contrast Diagnosis Description: Nausea with vomiting, unspecified Schedule Confirmation Reviewed date:2022 05:55:00 PM Interpretation: Performing Lab: Notes/Report: NM Gastric Emptying Study Schedule Confirmation Reviewed date:12/31/2022 10:14:52 AM Interpretation: Performing Lab: Notes/Report: NM Gastric Emptying Study NM Gastric Emptying Study-78 264 Reviewed date:01/09/2023 11:49:13 AM Interpretation: Performing Lab: Notes/Report: See Below For Report NM Gastric Emptying Study Diagnosis Description: Nausea with vomiting, unspecified Schedule Confirmation Reviewed date:01/08/2023 10:28:54 AM Interpretation: Performing Lab: Notes/Report: NM Gastric Emptying Study Schedule Confirmation Reviewed date:01/08/2023 10:28:54 AM Interpretation: Performing Lab: Notes/Report: NM Gastric Emptying Study EGD, Upper GI Diagnostic-432 35 Reviewed date:02/02/2023 03:39:49 PM Interpretation: Performing Lab: Notes/Report: Diagnostic Colonoscopy-30448 Reviewed date:02/02/2023 03:39:07 PM Interpretation: Performing Lab: Notes/Report: Echo Complete EC-[id number] Reviewed date:01/11/2023 07:46:13 AM Interpretation: Performing Lab: Notes/Report: [email or web address]=[id number]=iSite Glucometer WBG--16058 Reviewed date:01/26/2023 01:56:08 PM Interpretation: Performing Lab: Notes/Report: Glucometer WBG 166 65-110 MG/DL Meter: [id number] 0468~Flagsetter: [id number] MICHAEL DUNAWAY US Ankle Arm Indicies-90555 Reviewed date:06/28/2023 12:50:17 PM Interpretation: Performing Lab: Notes/Report: US Doppler Aorta, IVC, Iliac -45264 Reviewed date:07/05/2023 01:35:24 PM Interpretation: Performing Lab: Notes/Report: [id number]=iSite US Doppler Scan Arterial LE Bilat-33258 Reviewed date:07/06/2023 02:12:12 PM Interpretation: Performing Lab: Notes/Report: [email or web address]=[id number]=iSite US Doppler Aorta, IVC, Iliac -58377 Reviewed date:07/06/2023 02:13:17 PM Interpretation: Performing Lab: Notes/Report: See Below For Report US Doppler Aorta, IVC, Iliac US Doppler Scan Arterial LE Bilat-98646 Reviewed date:07/10/2023 02:10:24 PM Interpretation: Performing Lab: Notes/Report: See Below For Report US Doppler Scan Arterial LE Bilat Influenza A/B Reviewed date:08/10/2023 03:38:17 PM Interpretation: Performing Lab: Notes/Report: A NEG B NEG COVID-19 RAPID-98505 Reviewed date:08/10/2023 03:39:08 PM Interpretation: Performing Lab: Notes/Report: COVID19 NEG REASON FOR REFERRAL Reason eval and manage Diagnosis 1 Intractable nausea a nd vomiting (R11.2) Referral Organization [facility] Referring Provider First Name Layla Referring Provider Last Name Vannessa Referring Provider Speciality Family Med icine Referred Organization [facility] Referred Provider [facility] Referred Address [address] [place],[address] Referred Provider Specialty Gastroentero logy Referral Priority Routine Reason ingrown toenails juan r aterally Diagnosis 1 Ingrown toenail of b oth feet (L60.0) Referral Organization [facility] Referring Provider First Name Ira Referring Provider Last Name Eligio Referring Provider Speciality Nurse Carlos dailey Referred Provider Veto Tellez Referral Priority Routine MEDICATIONS Medication SIG (Take, Route, Frequency, Duration) Notes Start Date End Date Status Simvastatin 20 MG 1 tablet in the even ing Orally Once a day for 90 days 06/19/2023 Active Nystatin 933558 UNIT/GM 1 application Externally Twice a day for 30 days Active SUMAtriptan Succinate 100 MG 1 tablet Orally As Needed for 30 days Active Dilt-XR 120 MG 1 capsule Orally twi ce daily for 90 days Active Topiramate 100 MG 1 tablet Orally Once a day Active Aldactone 50 MG 2 tablets Orally Onc e a day for 90 days 07/07/2022 11/03/2023 Active Trulicity 0.75 MG/0.5ML weekly Subcutane ous for 30 days Active cloNIDine HCl 0.1 MG 1 tablet Orally holland ry 8 hours as needed Active dilTIAZem HCl ER 120 MG 1 capsule Orally Twice a day for 90 days 07/19/2023 Active tiZANidine HCl 4 MG 1 tablet as needed Orally four times a day for 30 days 11/28/2023 Active diphenhydrAMINE HCl 25 MG 2 to 4 tablets as needed Orally Daily Active Farxiga 10 MG 1 tablet Orally Once a day for 90 days Active Venlafaxine HCl ER 75 MG TAKE 3 CAPSULES BY MOUTH ONCE DAILY WITH FOOD FOR 30 DAYS for 30 Active Isosorbide Mononitrate ER 60 MG 1 tablet in the morning Orally Once a day for 30 day(s) 04/26/2023 Active metFORMIN HCl ER 500 MG 1 tablet with ev ening meal Orally Once a day for 30 days Active Labetalol HCl 200 MG 1 tablet Orally Twi ce a day for 90 days 11/08/2022 Active Losartan Potassium 100 MG 1 tablet Orall y Once a day for 90 days 07/07/2022 Active Metoclopramide HCl 10 MG 1 tablet on the tongue and allow to dissolve before meals Orally Twice a day Active IMMUNIZATIONS Vaccine Route Administration Date Status Comme nts COVID-19 Vaccine (Moderna) Booster Unknown 04/27/2021 Administered COVID-19 Vaccine (Moderna) Booster Unknown 12/26/2021 Administered COVID-19 Vaccine (Moderna) Dose #1 Unknown 12/08/2020 Administered COVID-19 Vaccine (Moderna) Dose #2 Unknown 01/05/2021 Administered COVID-19 Vaccine (Moderna), Bivalent Booster Unknown 07/15/2022 Administered Flu vaccine no Preserv 3 and > Unknown 06/11/2021 Administered Fluarix preservative free Unknown 07/27/2023 Administered Flucelvax Quadrivalent Pres Free IM Intramuscular 06/17/2022 Administered SGL-[id number] 4 . Received verbal consent for influenza vaccine from patient. No contraindication s. Prevnar 20 IM Intramuscular 06/17/2022 Administered ND-00 05-2000- , Received verbal consent for pneumonia vaccine from patient. No contraindication s. Recombinant Zoster Unknown 10/12/2020 Administered Recombinant Zoster Unknown 01/22/2021 Administered TDAP IM Intramuscular 07/29/[address] [facility]#[id number] 160-842-01 SOCIAL HISTORY Tobacco Use: Social History Observation Description Date Details (start date - stop date) Unknown Sex Assigned At : Social History Observation Description Sex Assigned At Unknown Tobacco Use/Smoking Question Answer Notes Are you a Uses tobacco in other forms Additional Findings: Tobacco User Chews fine cut tobacco Additional Findings: Tobacco Non-User Current no n-smoker Alcohol Screen (Audit-C) Question Answer Notes Did you have a drink containing alcohol in the p ast year? No Points 0 Interpretation Negative Tobacco use other than smoking: Question Answer Notes Are you an other tobacco user? Yes Advance Care Planning Question Answer Notes Advance care planning Other Pamphlet jose keith and reviewed with patient. PHQ-9 Question Answer Notes Little interest or pleasure in doing things Near ly every day Feeling down, depressed, or hopeless Nearly ever y day Trouble falling or staying asleep, or sleeping t oo much More than half the days Feeling tired or having little energy Nearly holland ry day Poor appetite or overeating Nearly every day Feeling bad about yourself, or that you are a failure, or have let yourself or your family down More than half the days Trouble concentrating on thi ngs, such as reading the newspaper or watching television Nearly every day Moving or speaking so slowly that other people could have noticed. Or the opposite ? being so fidgety or restless that you have been moving around a lot more than usual Nearly every day Thoughts that you would be b niyah off , or of hurting yourself in some way Not at all Total Score 22 Interpretation Severe Depression PROBLEMS Problem Type ICD Code Onset Dates Problem Status W/U Status Risk SNOMED Code Notes Problem Thoracic aneurysm without mention of rupture (I71.20) Active confirmed Thoracic ao rtic aneurysm without rupture (disorder) (90126722) Problem Atherosclerotic peripheral vascular disease with intermittent claudication (I70.219) Active confirmed 975569096 Problem Chronic depression (F32.A) Active confirmed 167713109 Problem Occipital headache (R51.9) Active confirmed Occipital heada mukesh (340154) Problem DDD (degenerative disc disease), cervical (M50.30) Active confirmed Cervical d isc disorder (340569174) Problem Chronic migraine (G43.709) Active confirmed Chronic migrain e (962800498) Problem Facet arthropathy, cervical (M47.812) Active confirmed Cervical spondylosis without myelopathy (406548588) Problem Left ventricular hypertrophy (I51.7) Active confirmed Left ventricula r hypertrophy (21662303) Problem Chronic sinusitis (J32.9) Active confirmed Chronic sinusit is (09419845) Problem Cervical myelopathy (G95.9) Active confirmed Cervical myelopathy (195213514) Problem Atherosclerosis of [place] coronary artery of [place] heart without angina pectoris (I25.10) Active confirmed Atherosclerosis of coronary artery without angina pectoris (773876963987245) Problem Thoracic aortic aneurysm without rupture (I71.2) Active confirmed Thoracic aor tic aneurysm without rupture (01856835) Problem Prostate cancer (C61) Active confirmed Prostate cancer (086035876) Problem Exercise induced bronchospasm (J45.990) Active confirmed Exercise induce d bronchospasm (255055860) Problem Atherosclerosis of [place] arteries of extremities with intermittent claudication, bilateral legs (I70.213) Active confirmed 83493361006078103 Problem Paroxysmal atrial fibrillation (I48.0) Active confirmed 460270861 Problem Nonrheumatic tricuspid (valve) insufficiency (I36.1) Active confirmed Tricuspid valve disorder, non-rheumatic (889085286) Problem Nonrheumatic mitral (valve) insufficiency (I34.0) Active confirmed Mitral valve disorder (52761950) Problem Type 2 diabetes mellitus with hyperglycemia (E11.65) Active confirmed Hyperglycemia d ue to type 2 diabetes mellitus (410647721418868) Problem Premature atrial contractions (I49.1) Active confirmed Atrial prematur e contractions (776493205) Problem 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) Active confirmed 029686543 Problem Liver dysfunction (K76.89) Active confirmed Disease of live r (678268161) Problem Vitamin D insufficiency (E55.9) Active confirmed Vitamin D deficiency (85073559) Problem Memory changes (R41.3) Active confirmed 812716817 Problem SVT (supraventricular tachycardia) (I47.1) Active confirmed Supraventricula r tachycardia (6489368) Problem Hyperlipidemia (E78.5) Active confirmed Hyperlipidemia (39879752) Problem Chronic pain (G89.29) Active confirmed Chronic pain (26698405) Problem Thrombocytopenia (D69.6) Active confirmed Thrombocytopeni a (407644619) Problem Chronic constipation (K59.09) Active confirmed 634939227 Problem Neuropathy (G62.9) Active confirmed 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) Problem Anxiety (F41.9) Active confirmed Anxiet y (95333386) Problem Essential hypertension (I10) Active confirmed Essential hypertension (30110771) Problem Other cervical disc degeneration at C6-C7 level (M50.323) Active confirmed Degeneration of cervical intervertebral disc (24838663) Problem Other cervical disc degeneration at C5-C6 level (M50.322) Active confirmed Degeneration of cervical intervertebral disc (07810497) Problem Other cervical disc degeneration at C4-C5 level (M50.321) Active confirmed Degeneration of cervical intervertebral disc (36826024) Problem Occipital neuralgia (M54.81) Active confirmed Occipital neuralgia (86168786) Problem Esophageal obstruction (K22.2) Active confirmed Stricture of esophagus (98540409) Problem Gastro-esophageal reflux disease without esophagitis (K21.9) Active confirmed Gastro-esophage al reflux disease without esophagitis (047857108) VITAL SIGNS Heart Rate 90 /min 08/11/2023 Temperature 97.5 degrees Fahrenheit 03/17/2023 Respiratory Rate 18 /min 08/11/2023 Blood pressure diastolic 80 mm Hg 08/11/2023 Height-cm 165.1 cm 08/11/2023 Oximetry 97 % 08/11/2023 Weight-kg 69.9 kg 08/11/2023 Height 65 in 08/11/2023 Blood pressure systolic 138 mm Hg 08/11/2023 Weight 154.1 lbs 08/11/2023 BMI 25.64 kg/m2 08/11/2023 Encounters Encounter Location Date Provider Diagnosis [facility] [address] [place] [address] 08/17/2022 [facility] [place] [address] [place] [address] 08/24/2022 Larry Peres [facility] [address] [place] [address] 09/16/2022 [facility] [address] [place] [address], [place] [address] 10/10/2022 Kaiser Rodriguez [facility] [address] [place] [address] 11/04/2022 [facility] [address] [place] [address] 11/30/2022 [facility] [address] [place] [address] 01/09/2023 Abodunrin Deandre Gastro-esophageal reflux disease without esophagitis K21.9 ; Nausea and vomiting, unspecified vomiting type R11.2 ; Chronic constipation K59.09 and History of adenomatous polyp of colon Z86.[address] [place] [address] 01/10/2023 [facility] [address] [place] [address] 01/19/2023 [facility] [address] [place] [address] 01/19/2023 Remberto Carrera [facility] [place] [address] [place] [address] 01/23/2023 Twan Peres [facility] [address] [place] [address] 01/23/2023 [facility] [address] [place] [address] 05/02/2023 [facility] [address] [place] [address] 05/17/2023 [facility] [address] [place] [address] 06/06/2023 [facility] [address] [place] [address] 06/13/2023 [facility] [address] [place] [address] 06/20/2023 [facility] [address] [place] [address] 06/27/2023 [facility] [address] [place] [address] 07/06/2023 [facility] [address] [place] [address] 07/11/2023 [facility] [address] [place] [address] 07/13/2023 [facility] [address] [place] [address] 07/19/2023 [facility] [address] [place] [address] 07/21/2023 [facility] [address] [place] [address] 08/09/2023 [facility] Encounter for screening for other viral diseases Z11.59 [place] [address] [place] [address] 08/11/2023 Layla Hurd [place] [address] [place] [address] 08/11/2023 Layla Hurd Viral URI with cough J06.9 ; Essential hypertension I10 and Type 2 diabetes mellitus with hyperglycemia E11.[address] [place] [address] 04/26/2023 Silvana Fonseca Essential hypertension I10 ; Chest pain R07.9 ; Edema, unspecified type R60.9 ; Hyperlipidemia E78.5 ; Paroxysmal atrial fibrillation I48.0 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2 ; Vision changes H53.9 ; Prostate cancer C61 and Essential hypertension I10 [place] [address] [address] [place] [address] 09/15/2022 Layla Hurd Acute gastroenteriti s K52.9 ; Primary hypertension I10 and Gastro-esophageal reflux disease without esophagitis K21.9 [address] [place] [address] [address] [address] 09/16/2022 Kemar Haim Formerly [facility] [address] [place] [address] 10/06/2022 Kaiser Rodriguez Chest pressure R07.8 9 ; Premature atrial contractions I49.1 ; Essential hypertension I10 ; Hyperlipidemia E78.5 ; Atherosclerosis of [place] coronary artery of [place] heart without angina pectoris I25.10 ; SVT (supraventricular tachycardia) I47.1 ; Thoracic aneurysm without mention of rupture I71.20 ; Gastro-esophageal reflux disease without esophagitis K21.9 ; Nicotine dependence, chewing tobacco, uncomplicated F17.220 ; 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 Z79.02 and History of COVID-19 Z86.16 [facility] [address] [place] [address], [place] [address] 11/08/2022 Kaiser Rodriguez Palpitations R00.2 ; Chest pain R07.9 ; Thoracic aneurysm without mention of rupture I71.20 ; Anxiety F41.9 ; Essential hypertension I10 ; Dizziness R42 ; Fatigue R53.83 ; Gastro-esophageal reflux disease without esophagitis K21.9 ; Hyperlipidemia E78.5 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02 [facility] [address] [place] [address] 12/12/2022 Abodunrin Ambreenjo Nausea and vomiting, unspecified vomiting type R11.2 ; Chronic constipation K59.09 ; Gastroesophageal reflux disease, unspecified whether esophagitis present K21.9 ; History of adenomatous polyp of colon Z86.010 ; Type 2 diabetes mellitus with hyperglycemia E11.65 ; Prostate cancer C61 ; DDD (degenerative disc disease), cervical M50.30 ; Primary hypertension I10 ; Chronic depression F32.A and History of COVID-19 Z86.16 [facility] [address] [place] [address], [place] [address] 04/25/2023 Kaiser Rodriguez [facility] [address] [place] [address], [place] [address] 01/19/2023 Cassandra Castillo [facility] [address] [place] [address] 06/26/2023 Silvana Marian Atherosclerotic peripheral vascular disease with intermittent claudication I70.219 ; Atherosclerosis of fl[place] coronary artery of [place] heart without angina pectoris I25.10 ; Type 2 diabetes mellitus with hyperglycemia E11.65 ; Primary hypertension I10 ; Palpitations R00.2 ; Hyperlipidemia E78.5 and prison (current) use of antithrombotics/antipl atelets Z79.02 [facility] [address] [place] [address] 07/19/2023 Kaiser Rodriguez Palpitations R00.2 ; Atherosclerosis of [place] coronary artery of [place] heart without angina pectoris I25.10 ; Thoracic aneurysm without mention of rupture I71.20 ; Essential hypertension I10 ; Hyperlipidemia E78.5 ; OROZCO (dyspnea on exertion) R06.09 and bed bug exterminator (current) use of antithrombotics/antipl atelets Z79.02 [address] [place] [address] 03/17/2023 Ira Del Valle Encounter for Medica re annual wellness exam Z00.00 [facility] [address] [place] [address] 01/24/2023 Abodunrin Ambreenjo Gastro-esophageal reflux disease without esophagitis K21.9 ; Nausea and vomiting, unspecified vomiting type R11.2 ; History of adenomatous polyp of colon Z86.010 and Screening for colon cancer Z12.11 [address] [place] [address] 03/17/2023 Ira Del Valle Type 2 diabetes mellitus with hyperglycemia E11.65 ; Memory changes R41.3 ; Ingrown toenail of both feet L60.0 ; Soft tissue infection L08.9 ; Liver dysfunction K76.89 ; Vitamin D insufficiency E55.9 and Thrombocytopenia D69.6 [facility] [address] [place] [address] 06/19/2023 Layla Vannessa Type 2 diabetes mellitus with hyperglycemia E11.65 ; bed bug exterminator current use of oral hypoglycemic drug Z79.84 ; Essential hypertension I10 ; Chronic sinusitis J32.9 and Other cervical disc degeneration at C4-C5 level M50.321 [address] [place] [address] [place] [address] 07/31/2023 Layla Hurd DDD (degenerative di sc disease), cervical M50.30 ; Type 2 diabetes mellitus with hyperglycemia E11.65 ; Chronic depression F32.A ; Essential hypertension I10 and Neuropathy G62.9 [place] [address] [address] [place] [address] 12/16/2022 Layla Hurd Type 2 diabetes mellitus with hyperglycemia E11.65 ; Essential hypertension I10 ; Chronic pain G89.29 ; Gastro-esophageal reflux disease without esophagitis K21.9 and Ingrown nail of great toe of right foot L60.0 [place] [address] [address] [address] 11/07/2022 Layla Hurd Encounter for suppor t and coordination of transition of care Z76.89 ; Essential hypertension I10 ; Type 2 diabetes mellitus with hyperglycemia E11.65 and DDD (degenerative disc disease), cervical M50.30 [place] [address] [place] [address] 08/10/2023 Layla Hurd [facility] [address] [place] [address] 01/09/2023 Kaiser Rodriguez [facility] [address] [place] [address], [place] [address] 01/19/2023 Kaiser Rodriguez [facility] [address] [place] [address], [place] [address] 06/26/2023 Silvana Fonseca Atherosclerosis of fl[place] arteries of extremities with intermittent claudication, bilateral legs I70.213 [facility] [address] [place] [address], [place] [address] 07/05/2023 Kaiser Rodriguez Atherosclerosis of [place] arteries of extremities with intermittent claudication, bilateral legs I70.213 and Abdominal aortic atherosclerosis I70.[address] [place] [address] 07/06/2023 Kaiser Rodriguez Atherosclerosis of [place] arteries of extremities with intermittent claudication, bilateral legs I70.213 ASSESSMENTS Encounter Date Diagnosis Assessment Notes Treatment Notes Treatment Clinical Notes 09/23/2022 Vision changes (ICD-10 - H53.9) see above 09/23/2022 Intractable nausea and vomiting (ICD-10 - R11.2) Chronic. Deteriorated. Start reglan trial. Referral to GI for EGD. Order for CT head placed. considering further lab workup +/- spinal tap As patient has history of cancer current symptoms could be explained by mets to brain thus CT head. Other differentials include abdominal migraine, increased ICP (spinal tap?), gastroparesis (thus the reglan and EGD), PUD, and conversion disorder. ED notes appears to think patient is drug seeking but in all the time working with patient he has never once asked me for extensive pain medications despite chronic pain post cancer treatment. ED notes, CT abd, and labs reviewed by this physician, all essentially normal with exception of mild hypokalemia which is expected with vomiting; labs referenced interpreted by this physician Of note patient has lost 8lbs since Nov visit. 09/15/2022 Acute gastroenteritis (ICD-10 - K52.9) Acute. As symtpoms present for more than 48 hrs and patient unable to keep anything down recommend eval in ED for IVF and possible admission. Previous ED visit Aug 15, 2022 CT scan showed colitis; similar symptoms at that time and have no let up. Feel ED eval warranted. patient went to ED as instructed from clinic 09/15/2022 Primary hypertension (ICD-10 - I10) Chronic. deteriorated as patient intolerant of po at this time. Elevated BP today. Continue to monitor. Consider topical options for treatment if intolerance of po intake persists. 10/07/2022 Type 2 diabetes mellitus with hyperglycemia (ICD-10 - E11.65) chronic. holding metformin due to chronic nausea for now. A1c pending. continue to monitor 10/07/2022 Chronic nausea (ICD-10 - r11.2) Chronic. Improved a bit but not at goal. Continue to hold metoformin for now. F.u GI as scheduled for further evaluation. May try promethazine as prescribed by cardio. 12/12/2022 Chronic constipation (ICD-10 - K59.09) 10/06/2022 Chest pressure (ICD-10 - R07.89) 10/06/2022 Premature atrial contractions (ICD-10 - I49.1) 12/12/2022 Nausea and vomiting, unspecified vomiting type (ICD-10 - R11.2) 11/07/2022 Essential hypertension (ICD-10 - I10) Chronic. deteriorated. Increase aldactone to 50mg twice daily. Followup with cardio Dr. Rodriguez tomorrow as scheduled to consider topical alternatives for BP management when intolerant of oral due to GI upset. 11/07/2022 Encounter for support and coordination of transition of care (ICD-10 - Z76.89) Korey presented to the ER after worsening chest pain in the left center of his chest and then radiating down his back and his hips hurting by the time he decided to get checked out. He could feel his heart skipping beats and would get exhausted just walking around the house. His initial blood pressure was 250/128 with his last one being 167/89. No cardiac related issue at this time after imaging obtained but diagnosed with Hypertension. Was given several medications via IV and discharged home. Korey is feeling better this morning than he was yesterday he states. Was given a RX for pain medication but has not had a chance to fill it. BP remains elevated at home since discharge from ED albeit improved 160s/90s most often. Did not start minoxidil as prescribed at ED, waiting for followup today. Agreeable to not take minoxidil for now, increase aldactone, and discuss topical BP agents with cardio tomorrow. 12/16/2022 Type 2 diabetes mellitus with hyperglycemia (ICD-10 - E11.65) Chronic. continue farxiga. A1c due in 3 months. continue to monitor BS at home regularly, alert clinic if consistently >180 12/16/2022 Essential hypertension (ICD-10 - I10) Chronic. home BP improved. A bit elevated in clinic today likely secondary to pain but overall BP control as has improved. Recommend taking 1/2 labetalol if morning BP <120/80. Take clonidine as needed for BP >180/100. Followup with cardio as scheduled for repeat ECHO 11/08/2022 Palpitations (ICD-10 - R00.2) 11/08/2022 Chest pain (ICD-10 - R07.9) 01/09/2023 Palpitations (ICD-10 - R00.2) 01/09/2023 Thoracic aneurysm without mention of rupture (ICD-10 - I71.20) 03/17/2023 Type 2 diabetes mellitus with hyperglycemia (ICD-10 - E11.65) Labs today. Continue medication as directed. 03/17/2023 Memory changes (ICD-10 - R41.3) Has PET scan coming up. We will discuss evaluation of memory after results of PET scan are in. 01/09/2023 Gastro-esophageal reflux disease without esophagitis (ICD-10 - K21.9) 01/24/2023 Gastro-esophageal reflux disease without esophagitis (ICD-10 - K21.9) Diagnostic EGD today. 03/17/2023 Encounter for Medicare annual wellness exam (ICD-10 - Z00.00) Medical Annual Wellness visit was completed today. Health history reviewed and documented. Screening exams were reviewed as appropriate. Routine health and wellness precautions were discussed. Recommendations for preventative services as indicated and documented. Medical annual wellness was completed today by myself and Cordell Santacruz LPN. 06/19/2023 Type 2 diabetes mellitus with hyperglycemia (ICD-10 - E11.65) Chronic. Deteriorated. Most recent A1c 8.3 at outside office, worse today at 8.5. Tolerating increased dose of Farxiga without complication, refill Farxiga today. start low dose trulicity weekly. referral to [facility]. followup 4-6 weeks. Continue to monitor. 06/19/2023 prison current use of oral hypoglycemic drug (ICD-10 - Z79.84) 04/26/2023 Essential hypertension (ICD-10 - I10) He has been using clonidine more often as needed for high blood pressure but after being up on his feet today for doctors appointments etc. he has had worsened pain due to recent toenail removal. He assures me his blood pressure reading today is out of the ordinary for him and he will continue utilizing clonidine as needed. I have asked that he maintain a blood pressure/heart rate log at home, continue amlodipine, clonidine, labetalol and losartan and report readings systolically greater than 140 consistently, otherwise return in 2 months with a blood pressure/heart rate log for review. 04/26/2023 Chest pain (ICD-10 - R07.9) Reasons to report to ER reviewed today, otherwise follow-up in 2 months to review symptoms after increasing isosorbide. 06/26/2023 Atherosclerosis of [place] arteries of extremities with intermittent claudication, bilateral legs (ICD-10 - I70.213) 06/26/2023 Atherosclerotic peripheral vascular disease with intermittent claudication (ICD-10 - I70.219) 07/31/2023 Type 2 diabetes mellitus with hyperglycemia (ICD-10 - E11.65) Chronic. Improved. Continue Farxiga and Trulicity. Refill metformin. Continue monitor. Request most recent A1c from last place. 06/26/2023 Atherosclerosis of [place] coronary artery of [place] heart without angina pectoris (ICD-10 - I25.10) Symptoms have improved with the addition of isosorbide, continue Aldactone, amlodipine, as needed clonidine, labetalol, losartan, statin and isosorbide. 07/31/2023 DDD (degenerative disc disease), cervical (ICD-10 - M50.30) Chronic. Stable but not at goal. Follow-up with [facility] as scheduled for cervical fusion. Continue to monitor. 07/05/2023 Atherosclerosis of [place] arteries of extremities with intermittent claudication, bilateral legs (ICD-10 - I70.213) 07/05/2023 Abdominal aortic atherosclerosis (ICD-10 - I70.0) 07/06/2023 Atherosclerosis of [place] arteries of extremities with intermittent claudication, bilateral legs (ICD-10 - I70.213) 07/19/2023 Palpitations (ICD-10 - R00.2) Discontinue amlodipine in favor of starting diltiazem 120 mg BID for palpitation symptoms. 07/19/2023 Atherosclerosis of [place] coronary artery of [place] heart without angina pectoris (ICD-10 - I25.10) Patient is not having anginal symptoms. Repeat echo in January. 08/11/2023 Essential hypertension (ICD-10 - I10) chronic. controlled. continue current medication regimen. When using OTC medicaitons for symptoms of respiratory infection avoid ingredient pseudoephedrine as can cause increasing blood pressure. 08/11/2023 Viral URI with cough (ICD-10 - J06.9) New. Acute. Recommend OTC medications for symptoms prn such as flonase, tylneol cold/flu, aleve, etc. Avoid medications with D which is pseudoephedrine which can increase blood pressure. If no improvement in 5-7 days alert clinic for consideration of antibiotics. 08/09/2023 Encounter for screening for other viral diseases (ICD-10 - Z11.59) 07/19/2023 Thoracic aneurysm without mention of rupture (ICD-10 - I71.20) 08/11/2023 Type 2 diabetes mellitus with hyperglycemia (ICD-10 - E11.65) Chronic. stable. continue current medication regimen. 07/31/2023 Chronic depression (ICD-10 - F32.A) Chronic. Stable. Refill venlafaxine today. Continue to monitor. 06/26/2023 Type 2 diabetes mellitus with hyperglycemia (ICD-10 - E11.65) Continue follow-up with PCP for proper diabetes management. 04/26/2023 Edema, unspecified type (ICD-10 - R60.9) - ABIs to assess for PVD As his recent echo 3 months ago was negative for acute findings. 06/19/2023 Essential hypertension (ICD-10 - I10) Chronic. Not at goal. Blood pressure mildly elevated today however patient has not taken all of his medications this morning. Patient to be consistent with blood pressure medication regimen and monitor blood pressures regularly at home. If consistently greater than 140/90 patient is to call clinic for medication adjustment. Follow-up with cardiology as scheduled. 01/24/2023 Nausea and vomiting, unspecified vomiting type (ICD-10 - R11.2) Diagnostic EGD today. 01/09/2023 Nausea and vomiting, unspecified vomiting type (ICD-10 - R11.2) 03/17/2023 Ingrown toenail of both feet (ICD-10 - L60.0) Request referral to Dr. Tellez 01/09/2023 SVT (supraventricular tachycardia) (ICD-10 - I47.1) 11/08/2022 Thoracic aneurysm without mention of rupture (ICD-10 - I71.20) 12/16/2022 Chronic pain (ICD-10 - G89.29) chronic. continue to follow with pain management as scheduled 11/07/2022 Type 2 diabetes mellitus with hyperglycemia (ICD-10 - E11.65) Chronic. not at goal. currently intolerant of metformin due to gi upset. A1c deteriorated since last check (7.8 today) will start farxiga and repeat in 3 months. Recommend at least a fasting blood sugar check daily. Recommend compliance with diabetic diet. If continues to be intolerant of oral medications consider injectable such as trulicity or vitctoza. 10/06/2022 Essential hypertension (ICD-10 - I10) 12/12/2022 Gastroesophageal reflux disease, unspecified whether esophagitis present (ICD-10 - K21.9) 10/07/2022 Other depression (ICD-10 - F32.89) Chronic. Neurology stopped effexor. Awaiting new rx from neurology, unsure what is being started at this time. If patient has no improvement within 8 weeks consider referral to Dr. Mckeon () 09/23/2022 Prostate cancer (ICD-10 - C61) see above 09/15/2022 Gastro-esophageal reflux disease without esophagitis (ICD-10 - K21.9) Chronic. Continue antiacid as prescribed. Zofran rx given as well. 09/23/2022 Essential hypertension (ICD-10 - I10) Chronic. Not at goal as patient intolerant of PO meds at this time. Continue to monitor. Consider topical nitro or clonidine patch if symptoms continue to prevent patient from po medications and home BP rises. 12/12/2022 History of adenomatous polyp of colon (ICD-10 - Z86.010) 10/07/2022 Essential hypertension (ICD-10 - I10) chronic. stable. continue current medication regimen. continue to monitor 10/06/2022 Hyperlipidemia (ICD-10 - E78.5) Continue Pravastatin 12/16/2022 Gastro-esophageal reflux disease without esophagitis (ICD-10 - K21.9) Chronic. Followup with GI as shceduled. undergo testing as ordered by GI at [facility] 11/07/2022 DDD (degenerative disc disease), cervical (ICD-10 - M50.30) Chronic. continue to follow with pain management. take chronic pain medications as prescribed. Handicap paperwork for DMV completed and returned to patient today for parking pass. 11/08/2022 Anxiety (ICD-10 - F41.9) 01/09/2023 Atherosclerosis of [place]re[place] coronary artery of [place] heart without angina pectoris (ICD-10 - I25.10) 01/09/2023 Chronic constipation (ICD-10 - K59.09) 03/17/2023 Soft tissue infection (ICD-10 - L08.9) Take antibiotic as directed. If it does not heal up please contact clinic. 01/24/2023 History of adenomatous polyp of colon (ICD-10 - Z86.010) High risk screening colonoscopy today. 06/19/2023 Chronic sinusitis (ICD-10 - J32.9) Chronic. Deteriorated. Complete Augmentin therapy as prescribed. Continue Flonase. Recommend avoidance of Afrin as can cause rebound symptoms. Recommend addition of daily Erika/Zyrtec/Nicol tin. If no improvement in 1 to 2 weeks consider referral to ENT. 04/26/2023 Hyperlipidemia (ICD-10 - E78.5) 07/31/2023 Essential hypertension (ICD-10 - I10) Chronic. Stable. Continue Aldactone, labetalol, losartan, diltiazem. Continue to monitor. Of note, amlodipine was stopped at last cardiac visit as patient was switched to diltiazem for cardiac palpitations but this also has affected blood pressure.This physician personally reviewed office notes from cardiology. 06/26/2023 Primary hypertension (ICD-10 - I10) Stable, continue current regimen of antihypertensives. 07/19/2023 Essential hypertension (ICD-10 - I10) Continue aldactone, amlodipine, as-needed clonidine, labetalol, losartan, and isosorbide. 07/19/2023 Hyperlipidemia (ICD-10 - E78.5) Continue with simvastatin as directed. 07/31/2023 Neuropathy (ICD-10 - G62.9) Chronic. Stable. Continue tizanidine. Continue to monitor. 06/26/2023 Palpitations (ICD-10 - R00.2) 04/26/2023 Paroxysmal atrial fibrillation (ICD-10 - I48.0) 06/19/2023 Other cervical disc degeneration at C4-C5 level (ICD-10 - M50.321) Chronic. Unchanged. Refill tizanidine today. Follow-up with [facility] in [place] for intervention as scheduled. 01/24/2023 Screening for colon cancer (ICD-10 - Z12.11) 01/09/2023 History of adenomatous polyp of colon (ICD-10 - Z86.010) 03/17/2023 Liver dysfunction (ICD-10 - K76.89) 01/09/2023 Benign secondary hypertension (ICD-10 - I15.9) 11/08/2022 Essential hypertension (ICD-10 - I10) 12/16/2022 Ingrown nail of great toe of right foot (ICD-10 - L60.0) Chronic. Patinet considering referral to podiatry for nail removal. Nail/nailbed not currently infected 10/06/2022 Atherosclerosis of [place] coronary artery of [place] heart without angina pectoris (ICD-10 - I25.10) 10/07/2022 Atherosclerosis of [place] coronary artery of [place] heart without angina pectoris (ICD-10 - I25.10) Chronic. continue current medication regimen. continue to follow with cardio as scheduled 12/12/2022 Type 2 diabetes mellitus with hyperglycemia (ICD-10 - E11.65) 12/12/2022 Prostate cancer (ICD-10 - C61) 10/07/2022 Gastro-esophageal reflux disease without esophagitis (ICD-10 - K21.9) chronic. continue current antacid regimen as prescribed 10/06/2022 SVT (supraventricular tachycardia) (ICD-10 - I47.1) 03/17/2023 Vitamin D insufficiency (ICD-10 - E55.9) Labs today. Continue supplements. 01/09/2023 Type 2 diabetes mellitus with unspecified complications (ICD-10 - E11.8) 11/08/2022 Dizziness (ICD-10 - R42) 04/26/2023 prison (current) use of antithrombotics/anti platelets (ICD-10 - Z79.02) 06/26/2023 Hyperlipidemia (ICD-10 - E78.5) 07/19/2023 OROZCO (dyspnea on exertion) (ICD-10 - R06.09) 07/19/2023 bed bug exterminator (current) use of antithrombotics/anti platelets (ICD-10 - Z79.02) 06/26/2023 bed bug exterminator (current) use of antithrombotics/anti platelets (ICD-10 - Z79.02) 11/08/2022 Fatigue (ICD-10 - R53.83) 03/17/2023 Thrombocytopenia (ICD-10 - D69.6) 01/09/2023 Nonrheumatic tricuspid (valve) insufficiency (ICD-10 - I36.1) 10/06/2022 Thoracic aneurysm without mention of rupture (ICD-10 - I71.20) Plan to repeat another echo in four months. His last measurement was 4.0 cm 10/07/2022 Chronic migraine (ICD-10 - G43.709) chronic. follow up with neurology as scheduled. continue current medication regimen as prescribed. Be aware oxycodone can make GI symptoms worse, continue to use sparingly 12/12/2022 DDD (degenerative disc disease), cervical (ICD-10 - M50.30) 10/07/2022 DDD (degenerative disc disease), cervical (ICD-10 - M50.30) Chronic. deteriorated. continue to follow with pain management for injections as scheduled. If no improvement after completion alert Dr. Peres for further eval/management. 10/06/2022 Gastro-esophageal reflux disease without esophagitis (ICD-10 - K21.9) 01/09/2023 Nonrheumatic mitral (valve) insufficiency (ICD-10 - I34.0) 11/08/2022 Gastro-esophageal reflux disease without esophagitis (ICD-10 - K21.9) 12/12/2022 Primary hypertension (ICD-10 - I10) 12/12/2022 Chronic depression (ICD-10 - F32.A) 11/08/2022 Hyperlipidemia (ICD-10 - E78.5) 01/09/2023 Shortness of breath (ICD-10 - R06.02) 10/06/2022 Nicotine dependence, chewing tobacco, uncomplicated (ICD-10 - F17.220) 10/06/2022 bed bug exterminator current use of antithrombotics/anti platelets (ICD-10 - Z79.02) 12/12/2022 History of COVID-19 (ICD-10 - Z86.16) 11/08/2022 bed bug exterminator current use of antithrombotics/anti platelets (ICD-10 - Z79.02) 10/06/2022 History of COVID-19 (ICD-10 - Z86.16) 06/19/2023 Other All patient's questions are encouraged and addressed to their apparent satisfaction. Unless otherwise noted above, they are agreeable with the proposed plan of care and deny further needs or concerns at this time. I am happy to see patient prior to next office visit as needed for acute concerns. 11/07/2022 Other All patient's questions are encouraged and addressed to their apparent satisfaction. Unless otherwise noted above, they are agreeable with the proposed plan of care and deny further needs or concerns at this time. I am happy to see patient prior to next office visit as needed for acute concerns. I personally spent _60_ mins the day of encounter on chart review - ED note, labs, imaging; patient encounter/exam; charting; counseling; and medical management. I personally discussed case with cardio Dr Rodriguez who is agreeable to see patient tomorrow and consider topical bp medication options for when patient unable to take oral medications due to GI upset. 09/15/2022 Other All patient's questions are encouraged and addressed to their apparent satisfaction. Unless otherwise noted above, they are agreeable with the proposed plan of care and deny further needs or concerns at this time. I am happy to see patient prior to next office visit as needed for acute concerns. I personally spent _55_ mins the day of encounter on chart review, patient encounter/exam, charting, counseling, and medical management. This physician also called ED physician day of encounter to alert to impending presentation of the patient and my concerns needing emergent workup 10/06/2022 Other At this point for patient shortness of breath and chest pain, it is likely due to his elevated blood pressure. Will go ahead and give him Promethazine to see if he can taken his medications. Activity as tolerated. Followup again in four months with an echo 06/26/2023 Other From an exertio nal standpoint his symptoms have improved with isosorbide except for left leg claudication and in conjunction with the abnormal ABIs I will go ahead and schedule an ultrasound then have the patient follow-up with Dr. Rodriguez to review the results to discuss possible peripheral angiogram plus or minus stenting. 09/23/2022 Other All patient's questions are encouraged and addressed to their apparent satisfaction. Unless otherwise noted above, they are agreeable with the proposed plan of care and deny further needs or concerns at this time. I am happy to see patient prior to next office visit as needed for acute concerns. 10/07/2022 Other All patient's questions are encouraged and addressed to their apparent satisfaction. Unless otherwise noted above, they are agreeable with the proposed plan of care and deny further needs or concerns at this time. I am happy to see patient prior to next office visit as needed for acute concerns. 11/08/2022 Other PALPITATIONS: We will change him from bisoprolol to labetalol 100 mg b.i.d. as that would do a better job at controlling his blood pressure. Continue Aldactone at 100 mg daily along with amlodipine 10 mg, isosorbide 30 mg and losartan 100 mg. THORACIC ANEURYSM: Plan to repeat another echo with his next visit. ANXIETY: Continue venlafaxine. May consider increasing that dose in the future to 150. Activity as tolerated. Follow up again in 3-4 months with an echocardiogram 12/12/2022 Other The report of E GD performed by Dr. Lua in April 2022 reviewed and noted. There is report of the GE junction stenosis which was dilated with an 18 to 20 mm TTS balloon. The report of colonoscopy performed in [place] in August 2020 reviewed and noted. 3 polyps 3 to 4 mm in size were found and removed. Diverticulosis and internal hemorrhoids also noted. 2 of the removed polyps were reported as tubulovillous adenomas with the third polyp reported as hyperplastic. The potential etiology of patient's complaint of recurrent nausea and vomiting includes diabetic gastroparesis. The patient believes his last hemoglobin A1c was about 8.1%. Schedule the patient for a gastric emptying study. We will consider the patient for upper endoscopy if gastric emptying study is otherwise normal. Meanwhile, the importance of good glycemic control discussed with the patient. The patient is also advised to observe antireflux precautions and continue current PPI therapy. The above plan was discussed with the patient who expressed understanding. 07/19/2023 Other Follow up in [place] with echo and EKG. Christa Tovar, am scribing for Kaiser Rodriguez MD.Kaiser Tovar MD, personally performed the services prescribed in this documentation, as scribed by Christa Lyon, and it is both accurate and complete. 01/09/2023 Other For patient's ongoing symptoms, I suspect this is due to his fluctuating blood pressures. Will go ahead and increase his Labetalol to 200 mg b.i.d. in addition to Aldactone 50 mg, Imdur, and Losartan. For gastroesophageal reflux disease, continue Pantoprazole. For migraine headache, continue Sumatriptan. Activity as tolerated. Followup again in three months with an EKG, sooner if there are any other issues 07/31/2023 Other All patient's questions are encouraged and addressed to their apparent satisfaction. Unless otherwise noted above, they are agreeable with the proposed plan of care and deny further needs or concerns at this time. I am happy to see patient prior to next office visit as needed for acute concerns. Elizabeth Tovar MA, am serving as a scribe to document services personally performed by Layla Hurd MD based on my observation and the provider's statement to me. I, Layla Hurd MD, attest that Elizabeth Montes MA, is acting in a scribe capacity, has observed my performance of the services, and has documented them in accordance with my direction. The information recorded by the scribe is complete and accurate. 08/11/2023 Other All patient's questions are encouraged and addressed to their apparent satisfaction. Unless otherwise noted above, they are agreeable with the proposed plan of care and deny further needs or concerns at this time. I am happy to see patient prior to next office visit as needed for acute concerns. PLAN OF TREATMENT Pending Test Test Name Order Date Spine, Cervical 2V 06/17/2022 Cervical Spine w/ Obl/Flex Comp-83145 Echo Complete EC-[id number] 07/19/2023 Carbon Monoxide Diffusing Capacity-42480 03/08/2022 Electrocardiogram 12 Lead Tracing-80398 02/21/2022 PFT SpHb-82563 03/08/2022 PFT Thoracic Gas Volume-73676 03/08/2022 Spirometry, Basic (Outpatient)-12644 Spirometry With Bronchodilator-66543 Stress, Lexiscan Cardiolite-34154 2021 Electrocardiogram (EKG)-97922, 69601 Electrocardiogram (EKG) - 69968 02/22/20 22 Electrocardiogram (EKG) - 24792 10/06/19 23 Future Test Test Name Order Date Partial Thromboplastin Time 54014 2021 Prothrombin Time with INR (PT/INR) 03/28 Comprehensive Metabolic Panel 95908 10/13 Vitamin D Total (B) 38436 11/08/2022 CBC w\ Auto Diff 00523 02/07/2023 Hemoglobin A1C 03/11/2023 Next Appt Details Provider Name:Layla Hurd, 0 10/31/2023 01:20:00 PM, [address], [place], [address], Provider Name:Kaiser Jennifer , 01/23/2024 08:00:00 AM, [address] [place], [address], Provider Name:Kaiser Rodriguez , 01/23/2024 09:00:00 AM, [address] [place], [address], Provider Name:Kaiser Rodriguez , 06/26/2024 10:00:00 AM, [address] [place], [address], Insurance Providers Payer Name Payer Address Payer Phone Subscriber Number Group Number Insured Name Patient Relationship to Insured Coverage Start Date Coverage End Date MD Medicare [address] [place] [phone] [id number] Korey Mckeon Self - patient is the insured MD Medicaid [address] [place] [address] [phone] [id number] Korey Mckeon Self - patient is the insured MEDICAL (GENERAL) HISTORY Medical History History ICD Code hypertension diabetes mellitus prostate cancer Chronic kidney disease Nonalcoholic fatty liver Disease Pneumonia COVID, September 2021 Kidney stones Basal cell carcinoma left elbow Covid vaccinated and booster x3 hx of covid 09/2021 History of COVID-19 Z86.16 History of adenomatous polyp of colon Z8 6.010 Surgical History Surgery Date(Month/Year) tonsillectomy and adenoidectomy 1971 prostatectomy 11/26/2019 cholecystectomy 06/23/2020 L4-L5 discectomy Hospitalization History Reason Date(Month/Year) ER blood in urine , cat s can , possible infection or bladder issue 07/2023 [facility] ED - chest pain/sob 11/03/2022 [facility] ER - N&V, headache 09/2022 kidney stone 02/2022
== END 2023-08-17 14:10 | disposition home or self-care (01) | DRG 473 ==
LOC: MEDSURG 08-17 07:58
PROVIDERS: Anesthesiology; Admitting Provider Orthopaedic Surgery; PCP Family Medicine; Visit Provider Orthopaedic Surgery
PROC: 0RB30ZZ Excision of Cervical Vertebral Disc, Open Approach (ICD-10-PCS; CPT 22551; principal; 2023-08-16 08:10)
DX: M47.22 Other spondylosis with radiculopathy, cervical region (principal); E11.9 Type 2 diabetes mellitus without complications; I10 Essential (primary) hypertension; K21.9 Gastro-esophageal reflux disease without esophagitis; M19.90 Unspecified osteoarthritis, unspecified site; F41.9 Anxiety disorder, unspecified; F03.90 Unspecified dementia, unspecified severity, without behavioral disturbance, psychotic disturbance, mood disturbance, and anxiety; Z79.84 Long term (current) use of oral hypoglycemic drugs; Z87.891 Personal history of nicotine dependence; Z79.02 Long term (current) use of antithrombotics/antiplatelets
CPT/HCPCS: 36416; 36600; 51702; 72040; 76000; 82803; 82962; 96372; 97110; 97161; C1713; C1763; C9359; G0378; J0131; J0330; J0690; J1100; J1170; J1815; J1885; J2371; J2405; J2704; J2710; J3010; J3475; J3490; J7030; J7120; J8597

== ENCOUNTER → 2023-08-31 13:21 | Outpatient (BNVA) | payer MEDICARE, MEDICAID, SELFPAY | PROVIDERS: PCP Family Medicine; Visit Provider Physician Assistant | DX: Z98.1 Arthrodesis status (principal); Z47.89 Encounter for other orthopedic aftercare | CPT/HCPCS: 72040; 99024 ==

== ENCOUNTER → 2023-09-28 14:04 | Outpatient (BNVA) | payer MEDICARE, MEDICAID, SELFPAY | PROVIDERS: PCP Family Medicine; Visit Provider Orthopaedic Surgery | DX: Z98.1 Arthrodesis status (principal); Z47.89 Encounter for other orthopedic aftercare | CPT/HCPCS: 72040; 99024 ==

== ENCOUNTER → 2023-11-10 13:46 | Outpatient (BNVA) | payer MEDICARE, MEDICAID, SELFPAY | PROVIDERS: PCP Family Medicine; Visit Provider Orthopaedic Surgery | DX: Z98.1 Arthrodesis status (principal); M54.2 Cervicalgia | CPT/HCPCS: 36415; 72040; 80053; 81001; 85025; 99024 ==

== ENCOUNTER → 2023-12-18 08:45 | Outpatient (BNVA) | payer MEDICARE, SELFPAY | PROVIDERS: PCP Family Medicine; Visit Provider Family Medicine | DX: Z01.818 Encounter for other preprocedural examination (principal) | CPT/HCPCS: 80048; 81000; 81003; 85025; 87086; 93005 ==

== ENCOUNTER 2023-12-20 15:14 | Inpatient (IN) | payer MEDICARE, SELFPAY ==
[2023-12-20] VITALS (21 sets, daily range): BP systolic 101–165; BP diastolic 60–99; PULSE 67–86; RESP 12–18; TEMP 36.2–36.5; O2SAT 91–100; BMI 24.7
--- NOTE | 2023-12-20 | XR_ITS ---
WS: [id number] Cervical spine, C-arm fluoroscopy views, 12/20/2023 Clinical Data: SHADY PICS Comparison: Cervical spine C-arm fluoroscopy, 08/16/2023 Findings: Dr. Espino performed a posterior cervical thoracic fusion with pedicle screws and connecting rods. Impression: Posterior cervical thoracic fusion.
[2023-12-20] MEDS: sodium chloride 0.9% 1,000 ML 30 ML IV (10:48)
[2023-12-20 10:53] LABS: Glucose Point of Care 202 mg/dL (70-110)
--- NOTE | 2023-12-20 11:47 | W.PM.OPSUD ---
Surgery/Procedure H&P Update DATE OF PROCEDURE: December 20, 2023 DATE H&P PERFORMED: 12/18/23 H&P UPDATE INFORMATION: I have reviewed H&P completed within last 30 days, I have examined patient prior to procedure and No changes to prior documentation PLANNED PROCEDURE: Operation Date: 12/20/23 12:00 Proposed Procedures p Spinal Fusion(Not Applicable) - DO jean Rocha Cervical Decompression/C7-T1 Decomp(Not Applicable) - Ed Espino DO
[2023-12-20] MEDS: ondansetron 2 mg/ML SDV 2 mL 4 MG IVP (12:00)
[2023-12-20] MEDS: fentaNYL 50 mcg/mL INJ 2mL 100 MCG IVP (12:00)
[2023-12-20] MEDS: scopolamine 1.5 Patch 1 PATCH TRANSDERMA (12:19)
[2023-12-20] MEDS: methadone 10 mg Tablet PO (12:19)
[2023-12-20] MEDS: ceFAZolin 2,000 MG in sodium chloride 0.9% (plus) 50 ML 100 MG IV ×2 (12:31→22:00)
--- NOTE | 2023-12-20 13:05 | P.ANESASSM_ITS ---
Pre-Anesthetic Assessment Height/Weight: Height 1.65 m Weight 67.585 kg Temp Pulse Resp BP Pulse Ox O2 Del Method 97.6 F 80 17 132/88 98 Room Air 12/20/23 10:47 12/20/23 10:47 12/20/23 12:19 12/20/23 10:47 12/20/23 12:19 12/20/23 10:47 Operation Date: 12/20/23 12:00 Proposed Procedures p Spinal Fusion(Not Applicable) - Ed Espino DO s Cervical Decompression/C7-T1 Decomp(Not Applicable) - Ed Espino DO Familial anesthetic complications: none Was Beta Maikel taken within 24 hours: Yes Was Clonidine taken within 24 hours: Yes Last intake: Intake Last Liquid Date 12/19/23 Last Liquid Time 23:00 Last Solid Date 12/19/23 Last Solid Time 21:00 Social No alcohol and No tobacco Exam alert, oriented x 3, clear to auscultation bilaterally and regular rate & rhythm Airway Submandibular: within normal limits Cervical ROM: Other (mild decrease in extension) Mallampati: Class II Dentition: caps CV/HEM Hypertension GI Gastroesophageal Reflux Disease Metabolic Hyperlipidemia [facility] [place] Lower Back Pain and Osteoarthritis/DJD Neuropsych Anxiety, Depression, Headache and Neuropathy Chronic pain/opioid Anesthetic Plan ASA status: 3 Anesthesia: General Other: A.line, transfusion, ICU Medications/Allergies Home Medications Medication Instructions Recorded Confirmed Last Taken Type diphenhydramine HCl 25 mg tablet 50 mg PO DAILY 10/05/21 12/19/23 12/17/23 History (Allergy (diphenhydramine)) sumatriptan succinate 100 mg See Rx Instructions PO .COMPLEX #8 01/05/22 12/19/23 Unknown Rx tablet (Imitrex) tabs tizanidine 4 mg capsule 4 mg PO QID PRN muscle spams 01/05/22 12/19/23 12/18/23 History isosorbide mononitrate 30 mg 30 mg PO DAILY 06/01/22 12/19/23 12/09/23 History tablet,extended release 24 hr pantoprazole 20 mg tablet,delayed 20 mg PO DAILY 06/01/22 12/20/23 12/19/23 History release topiramate 100 mg tablet (Topamax) 100 mg PO ONCE 90 days #90 tabs 06/01/22 12/19/23 12/12/23 Rx clonidine HCl 0.1 mg tablet 0.1 mg PO BID PRN Blood Pressure 09/27/22 12/20/23 12/15/23 History Bone growth stimulator #1 ea 05/22/23 12/18/23 Unknown Rx bisoprolol fumarate 5 mg tablet 2.5 mg PO DAILY 06/05/23 12/19/23 12/09/23 History clopidogrel 75 mg tablet 75 mg PO DAILY 06/05/23 12/19/23 12/09/23 History fesoterodine 8 mg tablet,extended 8 mg PO DAILY 06/05/23 12/19/23 12/12/23 Hi story release 24 hr (Toviaz) labetalol 100 mg tablet 100 mg PO BID 06/05/23 12/20/23 12/20/23 History losartan 50 mg tablet 100 mg PO DAILY 06/05/23 12/19/23 12/15/23 History metoclopramide HCl 5 mg tablet 10 mg PO BID 06/05/23 12/19/23 12/09/23 History ondansetron 4 mg disintegrating 4 mg PO Q8H PRN nausea and vomiting 06/05/23 12/19/23 Unknown History tablet promethazine 25 mg tablet 25 mg PO TID PRN nausea 06/05/23 12/19/23 Unknown History spironolactone 50 mg tablet 50 mg PO BID 06/05/23 12/19/23 12/12/23 History venlafaxine 75 mg capsule,extended 225 mg PO DAILY 06/05/23 12/19/23 12/16/23 History release 24 hr Bone Growth stimulator #1 ea 08/07/23 12/18/23 Unknown Rx cilostazol 50 mg tablet 50 mg PO BID 08/10/23 12/19/23 12/09/23 History simvastatin 20 mg tablet 20 mg PO DAILY 08/10/23 12/19/23 08/14/23 History diltiazem HCl 120 mg 120 mg PO BID 08/14/23 12/20/23 12/20/23 History capsule,extended release 24 hr, controlled (DILT-XR) dapagliflozin propanediol 10 mg 10 mg PO DAILY 08/17/23 12/19/23 12/12/23 History tablet (Farxiga) dulaglutide 0.75 mg/0.5 mL 0.75 mg SUBCUT Q7D 08/17/23 12/19/23 12/12/23 History subcutaneous pen injector (Trulicity) nystatin 100,000 unit/gram topical 1 applic topical BID PRN Rash 08/17/23 12/19/23 Unknown History cream hydrocodone 5 mg-acetaminophen 325 1 - 2 tab PO .Q4-6H PRN pain 7 11/13/23 12/19/23 12/17/23 Rx mg tablet days #40 tabs Bone Growth Stimulator #1 ea 12/18/23 Unknown Rx fosfomycin tromethamine 3 gram 1 packet PO ONCE #1 ea 12/19/23 12/19/23 Unknown Rx oral packet potassium chloride 20 mEq 20 meq PO ONCE #1 tab 12/19/23 12/20/23 12/19/23 Rx tablet,extended release Allergies Allergy/AdvReac Type Severity Reaction Status Date / Time aspirin Allergy Severe ALGY-Anaphy Verified 12/18/23 09:06 laxis Current Medications Generic Name Dose Route Start Last Admin Trade Name Freq PRN Reason Stop Dose Admin Sodium Chloride 1,000 mls @ 30 mls/hr 12/20/23 10:30 12/20/23 10:48 Sodium Chloride 0.9% IV 12/21/23 10:29 30 mls/hr .Q24H KAILEY Administration Ondansetron HCl 4 mg 12/20/23 10:23 12/20/23 12:00 Ondansetron 2 Mg/Ml Sdv 2 Ml IVP 4 mg Q5M PRN Administration NAUSEA AND VOMITING PFSH Anesthesia Social History Smoking and tobacco/nicotine status: former use of tobacco/nicotine Alcohol intake: current Alcohol intake frequency: holidays/special occasions only Data Anesthesia Blood Bank 12/20/23 10:50 Blood Type O Positive Rho(D) Type Rh positive Antibody Screen Negative Cardiac Studies: No Data to Display
[2023-12-20] MEDS: vancomycin 1,000 MG SDV 1000 MG XX (13:54)
[2023-12-20] MEDS: lidocaine-epi 1% 20 mL INJ INJECTION (13:54)
--- NOTE | 2023-12-20 15:23 | PM.OP ---
Operative Report Date of procedure: December 20, 2023 Pre-op diagnosis: Cervical spondylosis with radiculopathy Post-op diagnosis: same Procedure done: 1. C5 - T2 posterior spine fusion 2. C5- T2 instrumentation 3. C7/T1 laminectomy with partial facetectomy 4. use of computer navigation stereotactic for spine 5. use of auto graft 6. use of allograft Surgeon: Ed Espino DO Estimated blood loss (mL): 150 Procedure: 1. C5 - T2 posterior spine fusion 2. C5- T2 instrumentation 3. C7/T1 laminectomy with partial facetectomy 4. use of computer navigation stereotactic for spine 5. use of auto graft 6. use of allograft Patient brought the op suite after undergoing anesthesia placed in the prone position. All his impingement well-padded patient's prepped draped normal sterile fashion over the posterior cervical spine. Skin incision made from C5 down to T2. The cervical fascia was split and subperiosteal dissection was made out to the lateral masses of C5-C6 and C7. Subperiosteal dissection was made out to the T1 and T2 transverse processes bilaterally. Next tension was brought to placing the fiducial and this was placed at the T2 spinous process. The fiducial was attached and the C-arm was brought in and spun around the patient information from the C-arm was then loaded the computer he later used for computer navigation of placement of pedicle screws. Next tension was brought to placing the pedicle screws at T1 and T2. This was done by using the gearshift probe linked to computer navigation this was drilled initially and then the gearshift probe linked to computer navigation was placed along the pedicle. And then the pedicle feeler was used. Then the screw was placed. Screws were placed bilaterally at T1 and T2 using the computer navigation. Next tension was brought to placing the lateral mass screws. The lateral mass of C7 was skipped. And then the center of the lateral mass was drilled at C6 and C5 bilaterally. Then the drill was used that was set at 12 mm. This was done at C5 and C6 bilaterally. And then 14 mm screws were placed at C5 and C6 bilaterally. Next the rods were attached at C5-T2 bilaterally. The rods were placed and then the caps were then torqued and tightened. Next attention was brought to performing the laminectomy. The lamina of both C7 and T1 were taken down. Once the lamina was removed this was later used for bone graft. And then the medial aspect of the facet at C7-T1 was taken down medially tracing out the C7 nerve bilaterally. In order to facilitate decompression of the C8 nerve roots. Next the lateral gutters were decorticated with a high-speed bur. And the [employer] bone graft and autograft from the lamina were packed into the lateral gutters. Vancomycin powder was placed deep drain was placed and wound was closed in layered fashion with 0 Vicryl 2-0 Vicryl and Monocryl suture. Sterile dressings were applied patient was transferred to PACU in stable condition.
[2023-12-20] MEDS: fentaNYL 50 mcg/mL INJ 2mL IVP (15:30)
[2023-12-20] MEDS: HYDROmorphone 1 mg/mL INJ 1 mL 0.5 MG IVP (15:35)
[2023-12-20] MEDS: HYDROmorphone 1 mg/mL INJ 1 mL ×2 (15:46→16:00)
[2023-12-20] MEDS: midazolam 1 mg/mL INJ 2 mL 2 MG IVP (15:50)
[2023-12-20] MEDS: lactated ringers 1,000 ML 90 ML IV (17:54)
--- NOTE | 2023-12-20 18:19 | ANE.PACU2 ---
Inpatient post-anesthesia follow up: Airway intact: Yes Vital signs: Temperature 97.6 F Pulse Rate 71 Respiratory Rate 16 Blood Pressure 116/61 Pulse Oximetry 94 Oxygen Delivery Me thod Nasal Cannula Oxygen Flow Rate 8 Fraction of Inspir ed Oxygen Hydration adequate: Yes Nausea and vomiting: No Pain level: 5 Mental status: Altered (Sedated)
[2023-12-20] MEDS: tizanidine 4 mg Tablet PO (22:17)
[2023-12-20] MEDS: HYDROcodone-acetaminophen 10-325 mg Tablet PO (22:17)
[2023-12-21] VITALS (19 sets, daily range): BP systolic 97–145; BP diastolic 59–75; PULSE 62–78; RESP 15–20; TEMP 36.4–36.6; O2SAT 96–100
[2023-12-21] MEDS: morphine 4 mg/mL SDV 1 mL 2 MG IVP ×4 (02:06→09:41)
[2023-12-21] MEDS: HYDROcodone-acetaminophen 10-325 mg Tablet PO ×2 (03:18→07:56)
[2023-12-21] MEDS: lactated ringers 1,000 ML 90 ML IV ×2 (03:18→14:48)
[2023-12-21] MEDS: ketorolac 30 mg/mL INJ IVP ×2 (06:07→13:41)
[2023-12-21] MEDS: ceFAZolin 2,000 MG in sodium chloride 0.9% (plus) 50 ML 100 MG IV ×2 (06:11→11:37)
[2023-12-21] MEDS: spironolactone 25 mg Tablet 50 MG PO ×2 (07:58→17:33)
[2023-12-21] MEDS: labetalol 200 mg Tablet 100 MG PO ×2 (07:59→17:32)
[2023-12-21] MEDS: potassium chloride ER 20 mEq Tablet PO (08:00)
[2023-12-21] MEDS: losartan 50 mg Tablet 100 MG PO (08:01)
[2023-12-21] MEDS: pantoprazole DR 40 mg Tablet PO (08:01)
[2023-12-21] MEDS: dilTIAZem ER (24HR) 120 mg Capsule PO ×2 (08:01→17:32)
[2023-12-21] MEDS: venlafaxine ER (24HR) 75 mg Capsule 225 MG PO (08:04)
[2023-12-21] MEDS: metoclopramide 10 mg Tablet PO ×2 (08:08→17:33)
[2023-12-21] MEDS: isosorbide mononitrate ER 30 mg Tablet PO (08:08)
[2023-12-21] MEDS: docusate sodium 100 mg Capsule PO ×2 (08:08→17:32)
[2023-12-21] MEDS: cilostazol 100 mg Tablet 50 MG PO ×2 (08:08→17:32)
--- NOTE | 2023-12-21 08:33 | PM.PN ---
Subjective Subjective: Patient having severe pain in his neck however the C7 distribution radicular pain down his arm is improved. Vitals/I&O/Wt Last Vital Signs Temp 97.7 F 12/21/23 07:17 Pulse 70 12/21/23 07:17 Resp 17 12/21/23 07:17 BP 127/72 12/21/23 08:01 Pulse Ox 100 12/21/23 07:17 O2 Del Method Nasal Cannula 12/21/23 04:00 O2 Flow Rate 2 12/21/23 03:22 12/20/23 12/21/23 12/21/23 22:59 06:59 14:59 Intake Total 1090 / 1140 896 / 2036 240 / 240 Output Total 200 / 200 1140 / 1340 Balance 890 / 940 -244 / 696 240 / 240 Weight last 48 hrs Weight 163 lb Weight 149 lb Weight 149 lb Physical Exam Narrative: Patient is in a soft collar pain is significant patient is moaning when I walked in the room. Urinary Catheter Management: [place]: Cath Placed During This Visit: yes Reason for Continuing Indwelling Catheter: Perioperative Use in Selected Surgeries Urinary Catheter Date of Insertion: 12/20/23 Urinary Catheter Time of Insertion: 12:55 A&P Assessment and plan (1) Status post cervical spinal fusion: Postop day 1 posterior cervical fusion. Will DC the hydrocodone and switch him to oxycodone and OxyContin. Will keep drain in 1 more day. Anticipate discharge tomorrow Attestations Medical Necessity Statement*: Pain control Coding Level of Care Code Acute Code for Chg Fwd Diagnoses Status post cervical spinal fusion Z98.1
[2023-12-21] MEDS: atorvastatin 40 mg Tablet 20 MG PO (09:39)
[2023-12-21] MEDS: oxyCODONE 10 mg ER (12 HR) Tablet PO ×2 (09:40→17:31)
[2023-12-21] MEDS: oxyCODONE-APAP 10-325 mg Tablet PO ×3 (10:48→22:04)
[2023-12-21] MEDS: tizanidine 4 mg Tablet PO ×2 (11:45→17:32)
[2023-12-21] MEDS: diphenhydrAMINE 50 mg Capsule PO (22:03)
[2023-12-22] VITALS (8 sets, daily range): BP systolic 90–118; BP diastolic 51–71; PULSE 62–67; RESP 16–18; TEMP 36.4–36.7; O2SAT 94–97
[2023-12-22] MEDS: lactated ringers 1,000 ML 90 ML IV (01:20)
[2023-12-22] MEDS: tizanidine 4 mg Tablet PO (09:16)
[2023-12-22] MEDS: ketorolac 30 mg/mL INJ IVP (09:16)
[2023-12-22] MEDS: cilostazol 100 mg Tablet 50 MG PO (09:16)
[2023-12-22] MEDS: isosorbide mononitrate ER 30 mg Tablet PO (09:16)
[2023-12-22] MEDS: venlafaxine ER (24HR) 75 mg Capsule 225 MG PO (09:16)
[2023-12-22] MEDS: docusate sodium 100 mg Capsule PO (09:17)
[2023-12-22] MEDS: atorvastatin 40 mg Tablet 20 MG PO (09:17)
[2023-12-22] MEDS: oxyCODONE 10 mg ER (12 HR) Tablet PO (09:17)
[2023-12-22] MEDS: dilTIAZem ER (24HR) 120 mg Capsule PO (09:17)
[2023-12-22] MEDS: metoclopramide 10 mg Tablet PO (09:18)
[2023-12-22] MEDS: pantoprazole DR 40 mg Tablet PO (09:19)
[2023-12-22] MEDS: potassium chloride ER 20 mEq Tablet PO (09:19)
[2023-12-22] MEDS: spironolactone 25 mg Tablet 50 MG PO (09:19)
[2023-12-22] MEDS: labetalol 200 mg Tablet 100 MG PO (09:19)
--- NOTE | 2023-12-22 09:24 | PM.DCS ---
Discharge Providers Date of Admission: 12/20/23 15:14 Date of Discharge: December 22, 2023 Attending Provider at Admission: Ed Espino DO Attending Provider at Discharge: Ed Espino DO Primary Care Provider: Layla Hurd MD Diagnoses at Discharge Discharge Diagnosis (1) Status post cervical spinal fusion: Status: Acute Reason for Visit Reason for Visit: M47.12 Physical Exam Narrative: Patient's pain was better controlled with the long-acting OxyContin and the oxycodone. Patient's symptoms have improved significantly. This point plan will be to see the patient back in 1 week Urinary Catheter Management: [place]: Cath Placed During This Visit: yes, but has since been removed by the nurse Reason for Continuing Indwelling Catheter: Decision to DC Catheter Urinary Catheter Date of Insertion: 12/20/23 Urinary Catheter Time of Insertion: 12:55 Date Urinary Catheter Removed: 12/21/23 Time Urinary Catheter Discontinued: 10:30 Discharge Data Studies Completed and Pending Completed Studies During Hospitalization Category Date Time Status XR cervical spine 3V* [id number] Routine Exams 12/20/23 00:00 Completed Laboratory Results POC Glucose 202 mg/dL (70-110) H 12/20/23 10:44 Blood Type O Positive 12/20/23 10:50 Rho(D) Type Rh positive 12/20/23 10:50 Antibody Screen Negative 12/20/23 10:50 Vitals Last Vital Signs Temp 98.1 F 12/22/23 07:52 Pulse 63 12/22/23 07:52 Resp 18 12/22/23 09:17 BP 90/51 12/22/23 09:19 Pulse Ox 95 12/22/23 07:52 O2 Del Method Room Air 12/22/23 07:52 O2 Flow Rate 0 12/21/23 20:00 Discharge Plan Discharge Patient Disposition: Home Condition: Stable Prescriptions: New oxycodone 10 mg tablet 10 mg PO Q4H PRN (Reason: pain) 7 Days Qty: 40 0RF morphine 15 mg tablet extended release 15 mg PO Q12H 7 Days Qty: 14 0RF Continued diphenhydramine HCl [Allergy (diphenhydramine)] 25 mg tablet 50 mg PO DAILY tizanidine 4 mg capsule 4 mg PO QID PRN (Reason: muscle spams) sumatriptan succinate [Imitrex] 100 mg tablet See Rx Instructions PO .COMPLEX Qty: 8 6RF Rx Instructions: take 1 tab at onset of headache; if no relief, may repeat 1 tab after at least 2 hrs; max = 2 tabs/24 hrs PO isosorbide mononitrate 30 mg tablet extended release 24 hr 30 mg PO DAILY pantoprazole 20 mg tablet,delayed release (DR/EC) 20 mg PO DAILY venlafaxine 75 mg capsule,extended release 24hr 225 mg PO DAILY losartan 50 mg tablet 100 mg PO DAILY clonidine HCl 0.1 mg tablet 0.1 mg PO BID PRN (Reason: Blood Pressure) metoclopramide HCl 5 mg tablet 10 mg PO BID labetalol 100 mg tablet 100 mg PO BID clopidogrel 75 mg tablet 75 mg PO DAILY spironolactone 50 mg tablet 50 mg PO BID fesoterodine [Toviaz] 8 mg tablet extended release 24 hr 8 mg PO DAILY ondansetron 4 mg tablet,disintegrating 4 mg PO Q8H PRN (Reason: nausea and vomiting) bisoprolol fumarate 5 mg tablet 2.5 mg PO DAILY cilostazol 50 mg tablet 50 mg PO BID simvastatin 20 mg tablet 20 mg PO DAILY (DME) Bone growth stimulator See Rx Instructions .Route .MEDSUPPLY Qty: 1 0RF Rx Instructions: As directed (DME) Bone Growth stimulator See Rx Instructions .Route .MEDSUPPLY Qty: 1 0RF Rx Instructions: As directed (DME) Bone Growth Stimulator See Rx Instructions .Route .MEDSUPPLY Qty: 1 0RF Rx Instructions: As directed diltiazem HCl [DILT-XR] 120 mg capsule,ext.rel 24h degradable 120 mg PO BID nystatin 100,000 unit/gram cream 1 applic TOPICAL BID PRN (Reason: Rash) dapagliflozin propanediol [Farxiga] 10 mg tablet 10 mg PO DAILY Trulicity 0.75 mg/0.5 mL pen injector 0.75 mg SUBCUT Q7D Rx Instructions: ON MONDAY topiramate 100 mg Tablet 100 mg PO DAILY fluticasone propionate 50 mcg/actuation spray,suspension 1 spray INTRANASAL DAILY PRN (Reason: allergies) metformin 500 mg tablet extended release 24 hr 500 mg PO QPM Discontinued hydrocodone-acetaminophen 5-325 mg tablet 1 - 2 tab PO .Q4-6H PRN (Reason: pain) 7 Days Qty: 40 0RF Discharge Orders: Discharge Order (Routine); Ordered 12/22/23 Ordered By: Ed Espino Other Ambulatory Orders: Physical Therapy Eval and Treat Outpatient (Order) Timeframe: 3 Days Facility: [facility] - Location: Physical Therapy Ordered By: Ed Espino Referrals: [facility] in [place], [place] [Other] Discharge Diet: Advance as tolerated Discharge Activity: Limit activity as instructed Patient Instructions: Opioid Safety Activity Restrictions/Additional Instructions: Thank you for choosing [facility] for your care! The following is a list of instructions, from your provider, to follow upon your discharge to ensure you have the optimal recovery from your recent injury or surgery. Anterior Cervical Discectomy and Fusion: What to Expect at Home Your Recovery Follow-up care is a [place] part of your treatment and safety. Be sure to make and go to all appointments, and call your doctor if you are having problems. If you do not already have a follow-up appointment made, call office in the next 1-3 days to make follow up appointment for 2 weeks at [phone]. It is also a good idea to know your test results and keep a list of the medicines you take. You can expect your neck to feel stiff or sore after surgery. This should improve in the weeks after surgery. But it may take 4 to 6 months for you to get better completely. You may have trouble sitting or standing in one position for very long and may need pain medicine in the weeks after your surgery. It may take 4 to 6 weeks to get back to your usual activities, but it may depend on what kind of surgery you had. Your throat will feel sore and it may be difficult to swallow for the first 3 days after your surgery. As long as you can get liquids down without difficulty, this should slowly improve, otherwise call our office or seek medical attention if it becomes increasingly difficult to get anything down including liquids. Avoid hot liquids for first 3-5 days. Soothing foods/liquids such as jello, pudding, and luke warm soups are recommended until swallowing improves. Staying elevated will also help, it's advised you keep propped up at while sleeping to help reduce the swelling. You may use an ice pack directly on your incision or around it on the back of your neck, using a cloth to protect your skin; and a heating pad to the back of your neck as needed. Do not use over the counter anti-inflammatory medications (Ibuprofen, Motrin, Aleve, Advil, etc) Taking these meds after having a fusion can delay fusion rates, we recommend you avoid them for the first 3 months after your surgery[address] Dr. Espino may advise you to work with a physical therapist to strengthen the muscles around your neck and back - this will be discussed at your follow - up appointments. The pain or numbness you were having in your arms before surgery should get better or go away completely. This care sheet gives you a general idea about how long it will take for you to recover. But each person recovers at a different pace. Follow the steps below to get better as quickly as possible. How can you care for yourself at home? Activity ? Rest when you feel tired. Getting enough sleep will help you recover. ? Try to walk each day. Start by walking a little more than you did the day before. Bit by bit, increase the amount you walk. Walking boosts blood flow and helps prevent pneumonia and constipation. Walking may also decrease your muscle soreness after surgery. ? No lifting anything that is more that 5 pounds. This may include heavy grocery bags and milk containers, a heavy briefcase or backpack, cat litter or dog food bags, a child, or a vacuum overhead cleaner. ? Avoid strenuous activities, such as bicycle riding, jogging, weightlifting, or aerobic exercise, until your doctor says it is okay. ? Do not drive until your follow-up visit after your surgery, or until your doctor says it isokay. ? Avoid taking long car trips for 2 to 4 weeks after surgery. Your neck may become tired and painful from sitting too long in one position. ? You will probably need to take 4 to 6 weeks off from work. It depends on the type of work you do and how you feel. ? You may have sex as soon as you feel able, but avoid positions that put stress on your neck or cause pain. Diet ? You can eat your normal diet. If your stomach is upset, try bland, low-fat foods like plain rice, broiled chicken, toast, and yogurt ? Drink plenty of fluids. If you have kidney, heart, or liver disease and have to limit fluids, talk with your doctor before you increase the amount of fluids you drink. ? You may notice that your bowel movements are not regular right after your surgery. This is common. Try to avoid constipation and straining with bowel movements. You may want to take a fiber supplement every day. If you have not had a bowel movement after a couple of days, ask your doctor about taking a mild laxative. Medicines ? Take pain medicines exactly as directed. 1. If Dr. Espino gave you a prescription medicine for pain, take lt as prescribed. 2. Do not take two or more pain medicines at the same time unless the doctor told you to. Many pain medicines have acetaminophen, which is Tylenol. Too much acetaminophen {Tylenol) can be harmful. 3. If you think your pain pill is making you sick to your stomach: 4. Take your pills after meals (unless your doctor has told you not to). 5. Ask your Dr. for a different pain pill. Incisioncare ? Remove your dressing 48hours after your surgery. Ok to shower and get the incision wet. Do not overtly wash your incision. When done, pad dry, leave open to air thereafter. Avoid creams and ointments directly on your incision. ? Your sutures in the incision will dissolve and fall out on their own. ? Keep the area clean and dry. You may cover it with a gauze bandage if it weeps or rubs against clothing; if you choose to do this, change the dressing everyday. Other instructions ? Use a heating pad, hot water bottle, or gentle massage on your back to reduce stiffness. Avoid putting heat on your incision When should you call for help? ? Call 911 anytime you think you may need emergency care. For example, call if: ? You pass out (lose consciousness). ? You have sudden chest pain and shortness of breath, or you cough upblood. ? You cannot swallow. ? You have severe pain in your neck or back. ? Call your Dr. or seek immediate medical care if: ? You have pain that does not get better after you take pain pills. ? You have loose stitches, or your incision comes open. ? You have blood or fluid draining from the incision. ? You have signs of infection, such as: 1. Increased pain, swelling, warmth, or redness. 2. Red streaks leading from the site. 3. Pus draining from the site. 4. Swollen lymph nodes in your neck or armpits. 5. A fever. ? You have severe pain in your arms. ? You have new or increased weakness or numbness in your arms. ? Watch closely for any changes in your health, and be sure to contact your doctor if: ? You do not have a bowel movement after taking a laxative. Discharge Attestations Time Spent in Discharge Care*: less than 30 min Quality Metrics Clinical Quality Measures [ No reported AMI, CVA or VTE this stay] Coding Level of Care Code Acute Code for Chg Fwd Diagnoses Status post cervical spinal fusion Z98.1
--- NOTE | 2023-12-22 10:01 | PC.SOCIAL ---
IMM Update Pg 2 of IMM Updated and reviewed with patient who verbalized understanding. Copy provided.
[2023-12-22] MEDS: oxyCODONE-APAP 10-325 mg Tablet PO (10:28)
--- NOTE | 2023-12-22 10:51 | PC.NURSE ---
Discontinued hemovac, no complications.
== END 2023-12-22 14:03 | disposition home or self-care (01) | DRG 460 ==
LOC: MEDSURG 12-21 11:03
PROVIDERS: Admitting Provider Orthopaedic Surgery; PCP Family Medicine; Visit Provider Orthopaedic Surgery
PROC: 0RG2071 Fusion of 2 or more Cervical Vertebral Joints with Autologous Tissue Substitute, Posterior Approach, Posterior Column, Open Approach (ICD-10-PCS; principal; 2023-12-20 12:00)
PROC: 0RG2071 Fusion of 2 or more Cervical Vertebral Joints with Autologous Tissue Substitute, Posterior Approach, Posterior Column, Open Approach (ICD-10-PCS; CPT 63001; 2023-12-20 12:00)
DX: M47.22 Other spondylosis with radiculopathy, cervical region (principal); I10 Essential (primary) hypertension; K21.9 Gastro-esophageal reflux disease without esophagitis; E78.5 Hyperlipidemia, unspecified; F32.A Depression, unspecified; F41.9 Anxiety disorder, unspecified
CPT/HCPCS: 36415; 36416; 51702; 72040; 76000; 80048; 81000; 81003; 82962; 85025; 86850; 86900; 87086; 93005; 97110; 97116; 97161; 97530; C1713; J0131; J0330; J0690; J1100; J1170; J1790; J1885; J2250; J2270; J2371; J2405; J2704; J2710; J3010; J3370; J3490; J7030; J7120; J8597; P9045; Q0163

== ENCOUNTER → 2024-01-02 07:40 | Outpatient (BNVA) | payer MEDICARE, SELFPAY | PROVIDERS: PCP Family Medicine; Visit Provider Orthopaedic Surgery | DX: Z98.1 Arthrodesis status (principal) | CPT/HCPCS: 99024 ==

== ENCOUNTER → 2024-02-01 07:54 | Outpatient (BNVA) | payer MEDICARE, SELFPAY | PROVIDERS: PCP Family Medicine; Visit Provider Orthopaedic Surgery | DX: Z98.1 Arthrodesis status (principal) | CPT/HCPCS: 72040; 99024 ==

== ENCOUNTER → 2024-03-12 07:56 | Outpatient (BNVA) | payer MEDICARE, SELFPAY | PROVIDERS: PCP Family Medicine; Visit Provider Orthopaedic Surgery | DX: Z98.1 Arthrodesis status (principal) | CPT/HCPCS: 72040; 99024 ==

== ENCOUNTER → 2024-03-18 07:58 | Outpatient (BNVA) | payer MEDICARE, SELFPAY | PROVIDERS: PCP Family Medicine; Visit Provider Physician Assistant | DX: M12.811 Other specific arthropathies, not elsewhere classified, right shoulder; M25.511 Pain in right shoulder | CPT/HCPCS: 20610; 73030; 99213; J3301 ==

== ENCOUNTER 2024-04-25 07:48 | Outpatient (CLI) | payer MEDICARE, SELFPAY ==
--- NOTE | 2024-04-25 08:00 | MR_ITS ---
WS: [id number] MRI RIGHT SHOULDER HISTORY: right shoulder pain COMPARISON: 03/18/2024 TECHNIQUE: Multiplanar sequences of the shoulder joint are submitted. Moderate AC joint arthritis. AC joint is narrowed with osteophytes. 6.4 mm osteophyte from the distal clavicle encroaches upon the myotendinous portion of the supraspinatus with deformity. Small amount of fluid in the subacromial and subdeltoid bursa. Mild subacromial impingement. No os acromion. Bicep s tendon present in the bicipital groove. 6 mm insertion site tear of the supraspinatus tendon without retraction. There is additional tendinop athy in the supraspinatus tendon directly over the humeral head. The remaining tendons of are intact. No muscle atrophy or edema. Mild narrowing the glenohumeral joint. Mild osteophytic ridging around the humeral head. No labral te ar. MR/MR shoulder RT wo con* [id number] IMPRESSION: 1. Moderate AC joint arthritis. 6.4 mm distal clavicular osteophyte encroaches and deforms the supraspinatus myotendinous region. 2. Mild subacromial impingement. 3. 6 mm insertion site tear of the supraspinatus tendon without retraction. Mi ld additional tendinopathy in the more proximal tendon. 4. Mild degenerative changes at the humeral head with osteophytic ridging.
== END 2024-04-25 07:49 | disposition home or self-care (01) ==
LOC: RAD 07:48
PROVIDERS: PCP Family Medicine; Visit Provider Physician Assistant
DX: M19.011 Primary osteoarthritis, right shoulder (principal); S46.811A Strain of other muscles, fascia and tendons at shoulder and upper arm level, right arm, initial encounter; X58.XXXA Exposure to other specified factors, initial encounter
CPT/HCPCS: 73221

== ENCOUNTER → 2024-06-11 07:46 | Outpatient (BNVA) | payer MEDICARE, SELFPAY | PROVIDERS: PCP Family Medicine; Visit Provider Orthopaedic Surgery | DX: Z98.1 Arthrodesis status (principal) | CPT/HCPCS: 72040; 99213 ==

== ENCOUNTER → 2024-08-23 10:36 | Outpatient (BNVA) | payer MEDICARE, SELFPAY | PROVIDERS: PCP Family Medicine; Visit Provider Student in an Organized Health Care Education/Training Program | DX: M75.101 Unspecified rotator cuff tear or rupture of right shoulder, not specified as traumatic (principal); M19.011 Primary osteoarthritis, right shoulder; R03.0 Elevated blood-pressure reading, without diagnosis of hypertension | CPT/HCPCS: 20610; 99214; J3301 ==

== ENCOUNTER → 2024-11-12 07:50 | Outpatient (BNVA) | payer MEDICARE, SELFPAY | PROVIDERS: PCP Family Medicine; Visit Provider Orthopaedic Surgery | DX: Z98.1 Arthrodesis status (principal) | CPT/HCPCS: 72040; 99213 ==

== ENCOUNTER → 2024-11-26 14:11 | Outpatient (BNVA) | payer MEDICARE, SELFPAY | PROVIDERS: PCP Family Medicine; Visit Provider Student in an Organized Health Care Education/Training Program | DX: M75.101 Unspecified rotator cuff tear or rupture of right shoulder, not specified as traumatic (principal); M75.21 Bicipital tendinitis, right shoulder; M19.011 Primary osteoarthritis, right shoulder | CPT/HCPCS: 99214 ==

== ENCOUNTER 2024-12-19 10:58 | Day surgery (SDC) | payer MEDICARE, SELFPAY ==
[2024-12-19] VITALS (10 sets, daily range): BP systolic 82–157; BP diastolic 60–84; PULSE 62–87; RESP 16–22; TEMP 36–36.4; O2SAT 93–100; BMI 25.0
[2024-12-19] MEDS: acetaminophen 1,000 MG/100 ML PIGGYBACK 400 MG IV (11:24)
[2024-12-19] MEDS: sodium chloride 0.9% 1,000 ML 30 ML IV (11:28)
[2024-12-19 11:44] LABS: Glucose Point of Care 218 mg/dL (70-110)
--- NOTE | 2024-12-19 12:54 | W.PM.OPSUD ---
Surgery/Procedure H&P Update DATE OF PROCEDURE: December 19, 2024 DATE H&P PERFORMED: 11/26/24 H&P UPDATE INFORMATION: I have reviewed H&P completed within last 30 days, I have examined patient prior to procedure and No changes to prior documentation PREOP DIAGNOSIS: Right shoulder rotator cuff tear, AC joint arthritis, subacromial impingeme PRIMARY INDICATION FOR PROCEDURE: Right shoulder rotator cuff tear, AC joint arthritis, subacromial impingement, biceps tendinitis PLANNED PROCEDURE: Operation Date: 12/19/24 12:40 Proposed Procedures p right shoulder diagnostic and surgical arthroscopy(Right) - DO jean Soares Subacromial Decompression(Right) - DO jean Soares acromioclavicular joint resection(Right) - DO jean Soares rotator cuff debridement versus repair(Right) - DO jean Soares POSSIBLE Bicep Tenodesis(Right) - Johnnie Zabala DO
--- NOTE | 2024-12-19 13:02 | ANES.PROC ---
Anesthesia Procedures Procedure/Date: 12/19/24 Nerve Block ^: Nerve Block 1: Main Anesthesia: other (100 mcg fentanyl and 2 mg Versed) Time Out Performed: Yes Consent: requested by attending/covering physician and from patient Nerve block location: interscalene Anesthesia monitors applied: pulse oximetry, EKG, BP cuff and oxygen Nerve block position: supine Anesthetic Used: ropivicaine 0.5% Amount of anesthesia used (mL): 30 Ultrasound used to: recognize landmarks Nerve Stimulator Used?: Yes Interscalene/Femoral BLK: other needle (pjunk) Injection: neg aspiration of heme Patient Tolerated Procedure: well Complications: none Additional Comments: decadron 4mg added to block
--- NOTE | 2024-12-19 13:11 | SUR.PREOP ---
Time out was performed at bedside by Dr Warren and RN for an interscalene block using 30ml 0.5% ropivicaine. Patient tolerated well.
[2024-12-19] MEDS: ceFAZolin 2,000 MG in sodium chloride 0.9% (plus) 50 ML 100 MG IV (13:19)
--- NOTE | 2024-12-19 13:24 | ANES.PREANE2 ---
Pre-Anesthetic Assessment Height/Weight: Height 5 ft 5 in Weight 150 lb Temp Pulse Resp BP Pulse Ox O2 Del Method 96.8 F L 87 17 82/64 96 Room Air 12/19/24 11:14 12/19/24 11:14 12/19/24 11:14 12/19/24 11:14 12/19/24 11:14 12/19/24 11:16 Preop Diagnosis: Right shoulder rotator cuff tear, AC joint arthritis, subacromial impingeme Operation Date: 12/19/24 12:40 Proposed Procedures p right shoulder diagnostic and surgical arthroscopy(Right) - Johnnie Zabala DO s Subacromial Decompression(Right) - Johnnie Hernandezatt DO s acromioclavicular joint resection(Right) - Johnnie Hernandezatt DO s rotator cuff debridement versus repair(Right) - Johnnie Hernandezatt DO s POSSIBLE Bicep Tenodesis(Right) - Johnnie Zabala, DO Was Beta Maikel taken within 24 hours: N/A Was Clonidine taken within 24 hours: N/A Last intake: Intake Last Liquid Date 12/18/24 Last Liquid Time 23:50 Last Solid Date 12/08/24 Last Solid Time 23:50 Social Tobacco and No alcohol Exam alert, oriented x 3, clear to auscultation bilaterally and regular rate & rhythm Airway Submandibular: within normal limits Cervical ROM: within normal limits Mallampati: Class II Dentition: full Anesthetic Plan ASA status: 2 Anesthesia: General and Regional (specify below) Other: No prior issues with anesthesia NPO since yesterday evening Vapes nicotine History of hypertension on clonidine, spironolactone, losartan and labetalol Type 2 diabetes, no insulin. Preop BS 218 Prior EKG showing sinus rhythm with incomplete RBBB possible old [place] Medications/Allergies Home Medications ?Medication ?Instructions ?Recorded ?Confirmed ?Last Taken ?Type diphenhydramine HCl 25 mg tablet 50 mg PO DAILY 10/05/21 12/18/24 12/18/24 History (Allergy (diphenhydramine)) sumatriptan succinate 100 mg See Rx Instructions PO .COMPLEX #8 01/05/22 12/18/24 Unknown Rx tablet (Imitrex) tabs tizanidine 4 mg capsule 4 mg PO QID PRN muscle spams 01/05/22 12/18/24 12/18/23 History isosorbide mononitrate 30 mg 30 mg PO DAILY 06/01/22 12/19/24 12/19/24 History tablet,extended release 24 hr pantoprazole 20 mg tablet,delayed 20 mg PO DAILY 06/01/22 12/18/24 12/18/24 History release Bone growth stimulator #1 ea 05/22/23 11/26/24 Unknown Rx bisoprolol fumarate 5 mg tablet 2.5 mg PO DAILY 06/05/23 12/18/24 12/18/24 History clopidogrel 75 mg tablet 75 mg PO DAILY 06/05/23 12/18/24 12/13/24 History fesoterodine 8 mg tablet,extended 8 mg PO DAILY 06/05/23 12/18/24 12/18/24 History release 24 hr (Toviaz) labetalol 100 mg tablet 100 mg PO BID 06/05/23 12/19/24 12/19/24 History losartan 50 mg tablet 100 mg PO DAILY 06/05/23 12/18/24 12/18/24 History metoclopramide HCl 5 mg tablet 10 mg PO BID 06/05/23 12/18/24 12/18/24 History ondansetron 4 mg disintegrating 4 mg PO Q8H PRN nausea and vomiting 06/05/23 12/18/24 Unknown History tablet spironolactone 50 mg tablet 50 mg PO BID 06/05/23 12/18/24 12/18/24 History venlafaxine 75 mg capsule,extended 225 mg PO DAILY 06/05/23 12/18/24 12/18/24 History release 24 hr Bone Growth stimulator #1 ea 08/07/23 11/26/24 Unknown Rx cilostazol 50 mg tablet 50 mg PO BID 08/10/23 12/18/24 12/18/24 History simvastatin 20 mg tablet 20 mg PO DAILY 08/10/23 12/18/24 12/18/24 History diltiazem HCl 120 mg 120 mg PO BID 08/14/23 12/19/24 12/19/24 History capsule,extended release 24 hr, controlled (DILT-XR) dapagliflozin propanediol 10 mg 10 mg PO DAILY 08/17/23 12/18/24 12/17/24 History tablet (Farxiga) dulaglutide 0.75 mg/0.5 mL 0.75 mg SUBCUT Q7D 08/17/23 12/18/24 12/11/24 History subcutaneous pen injector (Trulicity) nystatin 100,000 unit/gram topical 1 applic topical BID PRN Rash 08/17/23 12/18/24 Unknown History cream Bone Growth Stimulator #1 ea 12/18/23 11/26/24 Unknown Rx fluticasone propionate 50 1 spray intranasal DAILY PRN 12/21/23 12/18/24 12/18/24 History mcg/actuation nasal allergies spray,suspension metformin 500 mg tablet,extended 500 mg PO QPM 12/21/23 12/18/24 12/17/24 History release 24 hr topiramate 100 mg tablet 100 mg PO DAILY 12/21/23 12/18/24 12/18/24 History clonidine HCl 0.1 mg tablet 0.1 mg PO TID Blood Pressure 02/01/24 12/18/24 12/18/24 History gabapentin 300 mg capsule 300 mg PO TID 30 days #90 caps 02/01/24 12/18/24 12/18/24 Rx hydrocodone 7.5 mg-acetaminophen 1 tab PO Q6H PRN pain #20 tabs 12/19/24 Unknown Rx 325 mg tablet Allergies Allergy/AdvReac Type Severity Reaction Status Date / Time aspirin Allergy Severe ALGY-Anaphy Verified 12/18/24 10:18 laxis Current Medications Generic Name Dose Route Start Last Admin Trade Name Freq PRN Reason Stop Dose Admin Sodium Chloride 1,000 mls @ 30 mls/hr 12/19/24 11:15 12/19/24 11:28 Sodium Chloride 0.9% IV 12/20/24 11:14 30 mls/hr .Q24H KAILEY Administration PFSH Anesthesia Social History Smoking and tobacco/nicotine status: never used tobacco/nicotine Alcohol intake: current Alcohol intake frequency: holidays/special occasions only Data Anesthesia Cardiac Studies: No Data to Display
[2024-12-19] MEDS: EPINEPHrine 1 mg/mL INJ 2 MG XX (14:16)
--- NOTE | 2024-12-19 14:51 | W.PM.BPON ---
Date of Procedure:12/19/24 Surgeon: Johnnie Zabala DO Bereavement Program Coordinator(s): Wily Zabala PA-C Procedure(s) performed: Right shoulder diagnostic and surgical arthroscopy with rotator cuff repair (small) Right shoulder diagnostic and surgical arthroscopy with biceps tenotomy Right shoulder diagnostic and surgical arthroscopy with subacromial decompression (acromioplasty and bursectomy) Right shoulder diagnostic and surgical arthroscopy with AC joint resection (distal clavicle excision) Right shoulder diagnostic and surgical arthroscopy with labral debridement Findings of the procedure(s): Patient found to have a rotator cuff tear as well as completely tearing along the entire bicep tendon intra-articularly and superior labral tearing on the bicep tenotomy cuff repair subacromial decompression AC joint resection circumferential labral debridement explained that issues or complications Estimated blood loss: 10 mL Specimen(s) removed: None Post-operative diagnosis: right shoulder rotator cuff tear, biceps tendon tear long head, subacromial impingement, AC joint arthritis, circumferential labral tearing
--- NOTE | 2024-12-19 14:53 | P.OP_ITS ---
Operative Report Date of procedure: December 19, 2024 Surgeon: Johnnie Zabala DO Reefer Engineer: Wily Zabala PA-C: PA was necessary for assistance in this case with shoulder positioning to execute the procedure, assistance with instrumentation, as well as implant fixation when necessary, assist with wound closure and dressing application. Procedure: Preoperative diagnosis: Right shoulder rotator cuff tear, AC joint arthritis, subacromial impingement, biceps tendinitis Post-op diagnosis: right shoulder rotator cuff tear, biceps tendon tear long head, subacromial impingement, AC joint arthritis, circumferential labral tearing Procedure done: Right shoulder diagnostic and surgical arthroscopy with rotator cuff repair (small) Right shoulder diagnostic and surgical arthroscopy with biceps tenotomy Right shoulder diagnostic and surgical arthroscopy with subacromial decompression (acromioplasty and bursectomy) Right shoulder diagnostic and surgical arthroscopy with AC joint resection (distal clavicle excision) Right shoulder diagnostic and surgical arthroscopy with labral debridement Surgeon: Johnnie Zabala DO Estimated blood loss: 10mL IV fluids: See anesthesia record Implants: Arthrex 4.75 swivel lock Arthrex scorpion and suture tape x 2 Complications: None Condition: stable Disposition: same day Brief History: Patient been seen and worked up in the outpatient setting for?right?shoulder?pain.? Pt had an MRI which showed findings below.? Patient's failed conservative treatment and has weakness.? We talked about treatment options far as nonoperative and operative intervention..? We talked about risk benefits complication alternatives surgical nonsurgical treatment options.? Understanding risk of surgery he agrees to proceed with surgical intervention.? All questions have been answered at this time.? Patient elects proceed with surgery and consent obtained in preoperative holding area for right shoulder diagnostic and surgical arthroscopy with subacromial decompression, acromioclavicular joint resection, rotator cuff debridement versus repair, and possible biceps tenodesis Ordering Provider/Ordering MD: Wily Zabala Date of Service: 04/25/24 Procedure(s): MR shoulder RT wo con* [id number] Accession Number(s): [id number] Report Number: [id number] WS: [id number] MRI RIGHT SHOULDER HISTORY: right shoulder pain COMPARISON: 03/18/2024 TECHNIQUE: Multiplanar sequences of the shoulder joint are submitted. Moderate AC joint arthritis. AC joint is narrowed with osteophytes. 6.4 mm osteophyte from the distal clavicle encroaches upon the myotendinous portion of the supraspinatus with deformity. Small amount of fluid in the subacromial and subdeltoid bursa. Mild subacromial impingement. No os acromion. Biceps tendon present in the bicipital groove. 6 mm insertion site tear of the supraspinatus tendon without retraction. There is additional tendinopathy in the supraspinatus tendon directly over the humeral head. The remaining tendons of are intact. No muscle atrophy or edema. Mild narrowing the glenohumeral joint. Mild osteophytic ridging around the humeral head. No labral tear. MR/MR shoulder RT wo con* [id number] IMPRESSION: 1. Moderate AC joint arthritis. 6.4 mm distal clavicular osteophyte encroaches and deforms the supraspinatus myotendinous region. 2. Mild subacromial impingement. 3. 6 mm insertion site tear of the supraspinatus tendon without retraction. Mild additional tendinopathy in the more proximal tendon. 4. Mild degenerative changes at the humeral head with osteophytic ridging. Procedure: Patient seen evaluated in the preoperative holding area.? Consent reviewed and signed with patient.? Once again reviewed patient's MRI results as well as? planned surgical intervention.? Correct extremity marked.? Patient seen evaluated by anesthesia department received regional anesthesia.? Once ready for surgery was taken back to the operative suite.? Patient then subsequently underwent anesthesia per the anesthesia department was transported onto the OR table.? Patient was then placed into a lateral decubitus position with a beanbag and was appropriately secured to the bed.? All bony prominences well-padded.? Patient then had the?right?upper extremity was then prepped and draped in standard orthopedic fashion.? Patient received appropriate preoperative antibiotics.? Final timeout performed. The?right?upper extremity was then held in hanging from traction utilizing sterile technique.? Next started with standard diagnostic and surgical a rthroscopy with posterior portal position introduced arthroscope into the glenohumeral joint.? Visualized the glenohumeral joint I then introduced a spinal needle within the rotator cuff interval to confirm appropriate anterior portal placement.? Once this was confirmed I then made my small incision and then introduced my arthroscopic shaver into the glenohumeral joint.? After thorough debridement was clearly evident patient had a significant erythema as well as positive liftoff sign of the biceps anchor and biceps tendon tear as it was pulled within the joint.? Patient had complete straightening of the bicep tendon and the intra-articular tendinous quality was significantly poor and shredded and torn unable to perform a intra-articular tenodesis and as a result decision at this point in time was made to perform a biceps tenotomy.? Introduced a thermal wand and a biceps tenotomy was performed to completion With appropriate release with the scarring in the superior border of the intert ubercular groove. Next I evaluated the subscapularis tendon which was intact and no evidence of tear. ?Next there was significant labral tearing at biceps anchor and circumferential.? ? I then subsequently utilized a a arthroscopic shaver and thermal wand to perform a labral debridement.? This point time I then visualized the glenohumeral joint.? The glenohumeral joint was found to have grade 2? chondromalacia throughout.? Infrapatellar pouch was free of loose bodies from viewing the posterior portal.? Next a visualized the rotator cuff superiorly and there was found to be a small undersurface tearing of the supraspinatus tendon.? I utilized a spinal needle to reggie this location.?? This completed my work within the glenohumeral joint all fluid was suctioned free of the joint.? ?Next I reintroduced the arthroscope posteriorly.? And went to the subacromial space.? I established my lateral working portal at the site of which my spinal needle was marking of the rotator cuff tear.? Thermal wand was then introduced laterally and then I subsequently performed extensive bursectomy of the subacromial space.? Patient had a large anterior bone spur.? At this point time I proceeded with my AC joint resection thermal wand was used and track to the anterior edge of the acromion and then tracked all the way to the AC joint.? Once identified the AC joint this was very arthritic in nature.? Thermal wand was placed anteriorly to establish appropriate plane for AC joint resection.? Once appropriate margins and anterior inferior and anterior capsule was released I then introduced arthroscopic shaver and a bur and performed AC joint resection of both the acromion to cope plane at the AC joint and a distal clavicle resection was then performed totaling 1 cm in size and was confirmed.? This completed my AC joint resection and I then introduced the arthroscopic shaver laterally while continuing to view posteriorly.? I then performed an acromioplasty to complete my subacromial decompression prior to fixing the rotator cuff tear.? Next the arthroscopic shaver was then used previous spinal needle spot that is marked the small hole in the rotator cuff this was consistent with a small full- thickness tear.? Given the small size this did not need a medial and lateral row configuration as result my plan was for a horizontal mattress stitch with a single lateral row anchor.? As result I loaded and Arthrex scorpion with fiber tape x 2 for 2 horizontal mattress stitches. This was allowed to have satisfactory spread of the rotator cuff tear for repair. 2 horizontal mattress purchase appropriately spaced to the small tear of the supraspinatus tendon.? At this point in time and then introduced a shaver to debride the rotator cuff footprint and decorticate the footprint in preparation for repair, next I marked by swivel lock position.? Fiber tape 4 limbs were then loaded into a 4.75 swivel lock I then subsequently punched and then subsequently placement 4.75 swivel lock while maintaining appropriate tension and repair of rotator cuff and this was advanced with excellent fixation I then had a final confirmation of appropriate repair of the supraspinatus rotator cuff tendon tear.? Sutures were then cut with an arthroscopic suture cutter and subsequently evaluated the rotator cuff repair.? Repair was found to be satisfactory?shoulder?was taken through range of motion and the repair moved as a unit with no evidence of loss of fixation. ?I then switched the arthroscope to the lateral portal to confirm this tension- free repair.? I took the?shoulder?through range of motion and the rotator cuff repair was stable and moved as a unit. ?Next I then introduced the arthroscopic shaver posteriorly to complete my subacromial decompression appropriate complaining all the way up to the lateral edge of the acromion.? This completed the surgery.? All fluid was suctioned from the?shoulder.? All instruments were removed.? The lateral incision was then closed with nylon stitches.? As well as the portal sites closed with portal nylon stitches.? Xeroform 4 x 4's ABD and tape was then applied to the?right?shoulder?and was placed into a?shoulder?abduction pillow sling for rotator cuff repair.? Patient was then awakened from anesthesia and then taken back to PACU in stable condition.? Patient tolerated procedure without any issues. Disposition: Patient taken back in stable condition recovering well.? Dressings on in place clean dry and intact.? Will be nonweightbearing to the?right?upper extremity.? Follow rotator cuff repair protocol.? Patient to follow-up with me in the office in 2 weeks.? Patient will receive appropriate discharge instruction as well as pain medication postoperatively.? All questions answered.? We will contact the office for any questions or concerns.
--- NOTE | 2024-12-19 15:04 | PM.PACU ---
PACU note Narrative: Patient is a 59-year-old male who just underwent a right shoulder diagnostic and surgical arthroscopy. Patient transferred to PACU in stable condition. Pain is well controlled. shoulder Dressing on , dry and in place. Patient's operative arm is in a shoulder immobilizer. Patient is awake and alert and able to respond to my questions accordingly. Patient's fingers are warm with good perfusion. Normal cap refill under 2 seconds. Sensation and motor to arm unable to fully assess due to residual anesthetic block. unable to assess further range of motion due to anesthesia block and arm in sling. Exam: awake Disposition: discharged
== END 2024-12-19 16:36 | disposition home or self-care (01) ==
PROVIDERS: PCP Family Medicine; Visit Provider Student in an Organized Health Care Education/Training Program
PROC: (CPT 29805; principal; 2024-12-19 12:20)
PROC: (CPT 29826; 2024-12-19 12:20)
PROC: 0RSG0ZZ Reposition Right Acromioclavicular Joint, Open Approach (ICD-10-PCS; CPT 29827; 2024-12-19 12:20)
PROC: (CPT 29827; 2024-12-19 12:20)
DX: M75.101 Unspecified rotator cuff tear or rupture of right shoulder, not specified as traumatic (principal); M19.011 Primary osteoarthritis, right shoulder; S46.211A Strain of muscle, fascia and tendon of other parts of biceps, right arm, initial encounter; M75.51 Bursitis of right shoulder; M75.41 Impingement syndrome of right shoulder; E11.9 Type 2 diabetes mellitus without complications; F17.290 Nicotine dependence, other tobacco product, uncomplicated; I10 Essential (primary) hypertension; Z79.899 Other long term (current) drug therapy; Z79.02 Long term (current) use of antithrombotics/antiplatelets; Z79.85 Long-term (current) use of injectable non-insulin antidiabetic drugs; Z79.84 Long term (current) use of oral hypoglycemic drugs; Z88.8 Allergy status to other drugs, medicaments and biological substances; X58.XXXA Exposure to other specified factors, initial encounter
CPT/HCPCS: 29827; 29826; 29824; 29822; 36416; 82962; C1713; J0131; J0171; J0690; J1100; J2371; J2405; J2704; J3010; J3490; J7030; J9999

== ENCOUNTER → 2025-01-07 14:10 | Outpatient (BNVA) | payer MEDICARE, SELFPAY | PROVIDERS: PCP Family Medicine; Visit Provider Physician Assistant | DX: Z98.890 Other specified postprocedural states (principal) | CPT/HCPCS: 99024 ==

== ENCOUNTER → 2025-01-16 13:32 | Outpatient (BNVA) | payer MEDICARE, SELFPAY | PROVIDERS: PCP Family Medicine; Referring Provider Orthopaedic Surgery; Visit Provider Specialist | DX: M54.81 Occipital neuralgia (principal) | CPT/HCPCS: 64405; 99214; J1010; J3490 ==

== ENCOUNTER → 2025-02-04 13:55 | Outpatient (BNVA) | payer MEDICARE, SELFPAY | PROVIDERS: PCP Family Medicine; Visit Provider Physician Assistant | DX: Z98.890 Other specified postprocedural states (principal) | CPT/HCPCS: 99024 ==

== ENCOUNTER → 2025-02-28 08:07 | Outpatient (BNVA) | payer MEDICARE, SELFPAY | PROVIDERS: PCP Family Medicine; Referring Provider Orthopaedic Surgery; Visit Provider Specialist | DX: M54.81 Occipital neuralgia (principal) | CPT/HCPCS: 64405; J1010; J3490 ==

== ENCOUNTER → 2025-03-18 13:32 | Outpatient (BNVA) | payer MEDICARE, SELFPAY | PROVIDERS: PCP Family Medicine; Visit Provider Physician Assistant | DX: Z98.890 Other specified postprocedural states (principal) | CPT/HCPCS: 99213 ==

== ENCOUNTER → 2025-04-03 09:45 | Outpatient (BNVA) | payer MEDICARE, SELFPAY | PROVIDERS: PCP Family Medicine; Referring Provider Orthopaedic Surgery; Visit Provider Specialist | DX: M54.81 Occipital neuralgia (principal) | CPT/HCPCS: 64405; J1010; J3490 ==

== ENCOUNTER → 2025-05-08 10:23 | Outpatient (BNVA) | payer MEDICARE, SELFPAY | PROVIDERS: PCP Family Medicine; Visit Provider Orthopaedic Surgery | DX: M54.17 Radiculopathy, lumbosacral region (principal); M48.061 Spinal stenosis, lumbar region without neurogenic claudication; M48.062 Spinal stenosis, lumbar region with neurogenic claudication; M54.81 Occipital neuralgia | CPT/HCPCS: 64405; 72110; 99213; J1010; J3490; J9999 ==

== ENCOUNTER → 2025-05-13 14:26 | Outpatient (BNVA) | payer MEDICARE, SELFPAY | PROVIDERS: PCP Family Medicine; Visit Provider Student in an Organized Health Care Education/Training Program | DX: Z98.890 Other specified postprocedural states (principal) | CPT/HCPCS: 99213 ==

== ENCOUNTER 2025-05-23 12:40 | Outpatient (CLI) | payer MEDICARE, SELFPAY ==
--- NOTE | 2025-05-23 13:00 | MR_ITS ---
WS: [id number] MRI LUMBAR SPINE NONCONTRAST HISTORY: Back Pain, bilateral radiculopathy. Prior lumbar spine surgery. COMPARISON: None available. TECHNIQUE: Sagittal and axial multisequence imaging is submitted. Prior anterior cervical fusion hardware in the cervical spine. Mild increase in thoracic kyphosis. Normal lumbar alignment with no compression fractures or marrow edema. Mild disc desiccation throughout the lumbar spine. No fractures or acute marrow edema. Conus terminates normally at L1-2 disc level. L1-L2: Normal. L2-L3: Mild annular disc bulging with a broad-based RIGHT foraminal disc osteophyte. There is mild disc contact on the traversing L3 nerve roots and mild RIGHT foraminal stenosis. L3-L4: Diffuse annular disc bulging with a moderate size RIGHT foraminal disc osteophyte protrusion. Small central disc protrusion and small broad-based disc protrusion LEFT foramen. Ligamentum flavum and facet arthritis. Mild central stenosis with subarticular recess stenosis. There is significant disc contact on the traversing L4 nerve roots and moderate RIGHT and mild LEFT foraminal stenosis. L4-L5: Diffuse annular disc bulging with osteophytic ridging and facet arthritis. Ligamentum flavum hypertrophy. There is disc contact on the traversing L5 nerve roots, LEFT greater than RIGHT. Mild central and bilateral subarticular recess stenosis. Moderate LEFT foraminal stenosis. No RIGHT foraminal stenosis. L5-S1: Diffuse disc bulging with a central disc protrusion. Bilateral facet arthritis. Mild LEFT foraminal stenosis due to disc and osteophyte disease. Bilateral renal cysts. There is a small amount of edema within the subcu soft tissues over the lumbar spine. No mass. MR/MR lumbar spine wo con* [id number] IMPRESSION: 1. L3-4: Moderate sized RIGHT foraminal disc osteophyte protrusion. Small cent ral disc protrusion and broad-based LEFT foraminal protrusion. Mild central, lin barticular recess and foraminal stenosis. There is disc contacting the traversi ng L4 nerve roots. 2. L3-4: Moderate RIGHT and mild LEFT foraminal stenosis predominantly due to disc osteophyte disease. 3. L4-5: Moderate LEFT foraminal stenosis. Mild central and subarticular reces s stenosis. Disc contacts the traversing L5 nerve roots. 4. L5-S1: Mild LEFT foraminal stenosis. Small central disc protrusion.
== END 2025-05-23 12:41 | disposition home or self-care (01) ==
LOC: RAD 12:44
PROVIDERS: PCP Family Medicine; Visit Provider Orthopaedic Surgery
DX: M48.061 Spinal stenosis, lumbar region without neurogenic claudication (principal)
CPT/HCPCS: 72148

== ENCOUNTER → 2025-06-05 13:51 | Outpatient (BNVA) | payer MEDICARE, SELFPAY | PROVIDERS: PCP Family Medicine; Visit Provider Orthopaedic Surgery | DX: M48.061 Spinal stenosis, lumbar region without neurogenic claudication (principal); Z09 Encounter for follow-up examination after completed treatment for conditions other than malignant neoplasm | CPT/HCPCS: 99213 ==

== ENCOUNTER → 2025-06-17 08:56 | Outpatient (BNVA) | payer MEDICARE, SELFPAY | PROVIDERS: PCP Family Medicine; Referring Provider Orthopaedic Surgery; Visit Provider Anesthesiology Pain Medicine | DX: M48.062 Spinal stenosis, lumbar region with neurogenic claudication (principal); M54.17 Radiculopathy, lumbosacral region | CPT/HCPCS: 99204 ==

== ENCOUNTER → 2025-07-03 10:18 | Outpatient (BNVA) | payer MEDICARE, SELFPAY | PROVIDERS: PCP Family Medicine; Referring Provider Orthopaedic Surgery; Visit Provider Specialist | DX: M54.81 Occipital neuralgia (principal); G43.711 Chronic migraine without aura, intractable, with status migrainosus | CPT/HCPCS: 64405; J1010; J3490 ==

== ENCOUNTER → 2025-07-10 13:02 | Outpatient (BNVA) | payer MEDICARE, SELFPAY | PROVIDERS: PCP Family Medicine; Visit Provider Orthopaedic Surgery | DX: M48.062 Spinal stenosis, lumbar region with neurogenic claudication (principal) | CPT/HCPCS: 99213 ==

== ENCOUNTER → 2025-07-15 08:38 | Outpatient (BNVA) | payer MEDICARE, SELFPAY | PROVIDERS: PCP Family Medicine; Visit Provider Anesthesiology Pain Medicine | DX: M48.062 Spinal stenosis, lumbar region with neurogenic claudication (principal); M54.17 Radiculopathy, lumbosacral region; E11.9 Type 2 diabetes mellitus without complications | CPT/HCPCS: 36416; 99214 ==

== ENCOUNTER → 2025-07-31 13:40 | Outpatient (BNVA) | payer MEDICARE, SELFPAY | PROVIDERS: PCP Family Medicine; Visit Provider Orthopaedic Surgery | DX: Z01.818 Encounter for other preprocedural examination (principal); R73.09 Other abnormal glucose; M48.062 Spinal stenosis, lumbar region with neurogenic claudication | CPT/HCPCS: 36415; 80053; 81001; 83036; 85025; 99213 ==

== ENCOUNTER 2025-08-20 10:39 | Day surgery (SDC) | payer MEDICARE, SELFPAY ==
[2025-08-20] VITALS (15 sets, daily range): BP systolic 144–196; BP diastolic 85–118; PULSE 53–73; RESP 9–25; TEMP 36.5–36.8; O2SAT 94–100; BMI 26.9
--- NOTE | 2025-08-20 11:25 | SUR.PREOP ---
1102 b/p 196/118,recheck b/p 1120 235/140--and notified Dr. Estrada(anesthesiologist) notified
--- NOTE | 2025-08-20 11:57 | SUR.PREOP ---
1155 pt b/p 165/[address] Estrada(anesthesiologist) notified and blood sugar 270 and this also relayed to Dr. Estrada
--- NOTE | 2025-08-20 11:58 | ANES.PREANE2 ---
Pre-Anesthetic Assessment Height/Weight: Height 5 ft 5 in Weight 162 lb Temp Pulse Resp BP Pulse Ox O2 Del Method 98.2 F 68 17 196/118 95 Room Air 08/20/25 11:10 08/20/25 11:10 08/20/25 11:10 08/20/25 11:10 08/20/25 11:10 08/20/25 11:10 Preop Diagnosis: Lumbar stenosis neurogenic claudication Operation Date: 08/20/25 12:45 Proposed Procedures p Lumbar Spine Decompression(Not Applicable) - Ed Espino, DO Was Beta Maikel taken within 24 hours: N/A Was Clonidine taken within 24 hours: Yes Last intake: Intake Last Liquid Date 08/19/25 Last Liquid Time 23:58 Last Solid Date 08/19/25 Last Solid Time 23:58 Social No alcohol and No tobacco Exam alert, oriented x 3, clear to auscultation bilaterally and regular rate & rhythm Airway Submandibular: within normal limits Cervical ROM: within normal limits Mallampati: Class II Dentition: full Comments: Comments: Overbite Anesthetic Plan ASA status: 4 Anesthesia: General Other: No prior issues with anesthesia NPO since yesterday evening History of type 2 diabetes Hypertension on labetalol, losartan, spironolactone, diltiazem. Patient has not taken these medications since 08/12/2025. Patient's states that he does not take these medications regularly because the clonidine controls his BP when he checks his at home Clonidine taken yesterday Patient's BP initially 196/118, recheck 165/106 Occipital neuralgia on the right side S/p cervical spinal fusion Hemoglobin A1c 10.1. Preop BS 270. Does not take any medications for diabetes. Patient states that metformin messed with his stomach so he stopped taking it. He also states he was drinking 2, 2 L of soda a day but has cut that out Plan for GETA Medications/Allergies Home Medications ?Medication ?Instructions ?Recorded ?Confirmed ?Last Taken ?Type diphenhydramine HCl 25 mg tablet 25 mg PO BEDTIME 10/05/21 08/19/25 08/19/25 History (Allergy (diphenhydramine)) sumatriptan succinate 100 mg See Rx Instructions PO .COMPLEX #8 01/05/22 08/19/25 Unknown Rx tablet (Imitrex) tabs tizanidine 4 mg capsule 4 mg PO QPM PRN muscle spams 01/05/22 08/19/25 08/19/25 History isosorbide mononitrate 30 mg 30 mg PO DAILY 06/01/22 08/19/25 08/12/25 History tablet,extended release 24 hr bisoprolol fumarate 5 mg tablet 2.5 mg PO DAILY 06/05/23 08/19/25 08/12/25 History labetalol 100 mg tablet 100 mg PO BID 06/05/23 08/19/25 08/12/25 History losartan 50 mg tablet 100 mg PO DAILY 06/05/23 08/19/25 08/12/25 History spironolactone 50 mg tablet 50 mg PO BID 06/05/23 08/19/25 07/29/25 History simvastatin 20 mg tablet 20 mg PO DAILY 08/10/23 08/19/25 08/12/25 History diltiazem HCl 120 mg 120 mg PO BID 08/14/23 08/19/25 08/12/25 History capsule,extended release 24 hr, controlled (DILT-XR) topiramate 100 mg tablet 100 mg PO DAILY 12/21/23 08/19/25 07/29/25 History clonidine HCl 0.1 mg tablet 0.1 mg PO QPM Blood Pressure 02/01/24 08/19/25 08/19/25 History sotalol 80 mg tablet 80 mg PO QPM 01/07/25 08/19/25 08/19/25 History acetaminophen 500 mg tablet 500 mg PO Q6H PRN Pain 06/17/25 08/19/25 08/15/25 History (Tylenol Extra Strength) Allergies Allergy/AdvReac Type Severity Reaction Status Date / Time aspirin Allergy Severe ALGY-Anaphy Verified 08/18/25 15:34 laxis PFSH Anesthesia Social History Smoking and tobacco/nicotine status: never used tobacco/nicotine Alcohol intake: current Alcohol intake frequency: holidays/special occasions only
[2025-08-20] MEDS: insulin regular-human 100 units/1 mL 10 UNIT IVP (12:33)
--- NOTE | 2025-08-20 12:33 | W.PM.OPSUD ---
Surgery/Procedure H&P Update DATE OF PROCEDURE: August 20, 2025 DATE H&P PERFORMED: 07/31/25 H&P UPDATE INFORMATION: I have reviewed H&P completed within last 30 days, I have examined patient prior to procedure and No changes to prior documentation PREOP DIAGNOSIS: Lumbar stenosis neurogenic claudication PLANNED PROCEDURE: Operation Date: 08/20/25 12:45 Proposed Procedures p Lumbar Spine Decompression(Not Applicable) - Ed Espino DO
[2025-08-20] MEDS: ceFAZolin 2,000 mg SDV 2000 MG IVP (12:48)
[2025-08-20] MEDS: lidocaine-epi 1% 20 mL INJ INJECTION (13:25)
[2025-08-20] MEDS: fentaNYL 50 mcg/mL INJ 2mL IVP ×2 (14:19→14:24)
--- NOTE | 2025-08-20 14:23 | P.OP_ITS ---
Operative Report Date of procedure: August 20, 2025 Pre-op diagnosis: Lumbar stenosis with neurogenic claudication Post-op diagnosis: same Procedure done: 1. L3/4 laminectomy partial facetectomy 2. L4/5 laminectomy partial facetectomy Surgeon: Ed Espino DO Estimated blood loss (mL): 20 Procedure: 1. L3/4 laminectomy partial facetectomy 2. L4/5 laminectomy partial facetectomy Patient is brought to the operative suite. After undergoing anesthesia they are placed in the prone position. All areas of impingement are well padded. Patient is then prepped and draped in the normal sterile fashion. A skin incision is made over the L3/4 level. This is confirmed under c-arm davian dance. A series of dilators are passed and the tubular retractor is docked on the L 3/4 lamina. A bovie is used to clear the soft tissue off the lamina and the L 3/4 facet joint. A high speed alta is then used to perform the laminectomy and take down the medial aspect of the L 3/4 facet joint. A kerrison rongeure was then used to take down the remaining lamina and smooth the edge of the laminectomy up to the point where the ligamentum flavum attaches. Attention was then brought to the medial aspect of the facet joint. The remaining medial aspect of the superior and inferior aspect of the facet joint were taken down with the kerrison from the pedicle of L 3 to L 4. The facet joint had significant hypertrophy. Attention was then brought to the Ligamentum Flavum. The ligament was taken down from the lamina of L3 to L4 and out medially to the remaining facet joint. The ligament was thick. The dura was then exposed. The dura was in good repair. The L3 nerve was then traced with a curette out the L3/4 foramen and found to be adequately decompressed. The L4 nerve was traced with a curette around the L4 pedicle. The lateral recess was opened with a kerrison helping to further decompress the L4 nerve. Wound is then irrigated copiously with saline and surgiflo is used to stop any bleeding. The tubular retractor is removed and the A skin incision is made over the L4/5 level. This is confirmed under c-arm guidance. A series of dilators are passed and the tubular retractor is docked on the L4 lamina. A bovie is used to clear the soft tissue off the lamina and the L 4/5 facet joint. A high speed alta is then used to perform the laminectomy and take down the medial aspect of the L 4/5 facet joint. A kerrison rongeure was then used to take down the remaining lamina and smooth the edge of the laminectomy up to the point where the ligamentum flavum attaches. Attention was then brought to the medial aspect of the facet joint. The remaining medial aspect of the superior and inferior aspect of the facet joint were taken down with the kerrison from the pedicle of L4 to L 5. The facet joint had significant hypertrophy. Attention was then brought to the Ligamentum Flavum. The ligament was taken down from the lamina of L4 to L5 and out medially to the remaining facet joint. The ligament was thick. The dura was then exposed. The dura was in good repair. The L4 nerve was then traced with a curette out the L4/5 foramen and found to be adequately decompressed. The L5 nerve was traced with a curette around the L5 pedicle. The lateral recess was opened with a kerrison helping to further decompress the L5 nerve. Wound is then irrigated copiously with saline and surgiflo is used to stop any bleeding. The tubular retractor is removed and the wound is closed with vicryl and monocryl suture. Steri strips were applied. A sterile dressing is then placed. Patient was then placed in the supine position and transferred to the PACU in stable condition.
[2025-08-20] MEDS: HYDROmorphone 0.5 MG/0.5 ML INJ 1 MG IVP (14:32)
[2025-08-20] MEDS: HYDROmorphone 1 mg/mL INJ 1ml 0.5 MG IVP (14:49)
--- NOTE | 2025-08-20 14:53 | PC.NURSE ---
144 - Dr Estrada at [facility] aware of pts blood pressure and pain - will continue to monitor vital signs and follow pacu orders
[2025-08-20] MEDS: hyDRALAzine 20 mg/mL INJ 1 mL 10 MG IVP (14:58)
--- NOTE | 2025-08-20 15:15 | XR_ITS ---
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 XR/XR lumbar spine 1V [id number] IMPRESSION: Intraoperative lumbar level localization as above.
[2025-08-20] MEDS: HYDROcodone-acetaminophen 5-325 mg Tablet 1 TAB PO (15:22)
== END 2025-08-20 16:10 | disposition home or self-care (01) ==
PROVIDERS: PCP Family Medicine; Visit Provider Orthopaedic Surgery
PROC: (CPT 63005; principal; 2025-08-20 12:25)
DX: M48.062 Spinal stenosis, lumbar region with neurogenic claudication (principal); E11.9 Type 2 diabetes mellitus without complications; I10 Essential (primary) hypertension; Z98.1 Arthrodesis status; Z87.891 Personal history of nicotine dependence
CPT/HCPCS: 63047; 63048; 36416; 72020; 76000; 82962; A4649; J0360; J0690; J1100; J1171; J1815; J2250; J2405; J2704; J3010; J3490; J7030; J9999